=== PATIENT | female | born 1940 | race Caucasian/White ===

== ENCOUNTER 2016-12-13 13:01 | Emergency (ER) | payer BC ==
[2016-12-13] MEDS ORDERED: Labetalol IV* 5 MG/ML 20 ML VIAL IV PUSH ONE (13:38)
[2016-12-13 13:53] LABS: Hematocrit 44 % (35-47); Hemoglobin 15.6 g/dl (12.0-16.0); Mean Corpuscular HGB Conc 35 g/dl (31-36); Mean Corpuscular Hemoglobin 32 pg (27-31); Mean Corpuscular Volume 91 fL (80-97); Mean Platelet Volume 7 um3 (7.4-10.4); Red Blood Count 4.85 10^6/ul (4.0-5.4); Red Cell Distribution Width 13 % (10.5-15); White Blood Count 7.5 10^3/ul (3.5-10.8)
[2016-12-13 14:09] LABS: Albumin 4.6 g/dL (3.2-5.2); BUN/Creatinine Ratio 14.7 (8-20); Calcium 10.2 mg/dL (8.6-10.3); EGFR African American 107.6 (>60); EGFR Non-African American 83.7 (>60); Globulin 2.6 g/dL (2-4); HDL Cholesterol 91.6 mg/dL; Potassium 3.9 mmol/L (3.5-5.0); Total Bilirubin 0.7 mg/dL (0.2-1.0); Total Protein 7.2 g/dL (6.4-8.9); Troponin I 0.02 ng/mL (<0.04)
--- NOTE | 2016-12-13 14:22 | RAD ---
HISTORY: Hypertension, episode of aphasia COMPARISONS: None TECHNIQUE: Multiple contiguous axial CT scans were obtained of the head without intravenous contrast. FINDINGS: HEMORRHAGE/INFARCT: There is no hemorrhage or acute infarct. MASSES/SHIFT: There is no mass or shift. EXTRA-AXIAL SPACES: There are no extra-axial fluid collections. SULCI AND VENTRICLES: The sulci and ventricles are normal in size and position for the patient's stated age. CEREBRUM: There are no focal parenchymal abnormalities. BRAINSTEM: There are no focal parenchymal abnormalities. CEREBELLUM: There are no focal parenchymal abnormalities. VESSELS: The vessels are grossly normal. PARANASAL SINUSES: The paranasal sinuses are clear. ORBITS: The orbits are unremarkable. BONES AND SOFT TISSUE: No bone or soft tissue abnormalities are noted. OTHER: None IMPRESSION: NO ACUTE INTRACRANIAL PATHOLOGY.
--- NOTE | 2016-12-13 14:25 | RAD ---
Indication: Hypertension. 2 views of the chest including dual energy PA views demonstrate no mediastinal shift. Tortuous descending aorta is noted. Lungs are clear. IMPRESSION: No active cardiopulmonary disease is noted.
[2016-12-13] MEDS ORDERED: NS 0.9% 1000 ML* 1,000 ML IV ONE (14:41)
[2016-12-13 15:31] LABS: Urine Bilirubin Negative (Negative); Urine Glucose Negative (Negative); Urine Nitrite Negative (Negative)
[2016-12-13 16:59] VITALS: BP 139/51
--- NOTE | 2016-12-14 18:17 | ED ---
Lali Mckay Thomas, scribed for Sergio Byrne MD on 12/13/16 at 1359 . Neurological HPI - HPI Summary HPI Summary: The pt is a 76 y/o F referred from her PMD Dr. Obrien after she had a 2-minute episode of expressive aphasia three days ago that spontaneously resolved. She has a Hx of migraine headaches and she had a headache two days ago. She denies a BORJAS in the ED. Pt additionally c/o generalized malaise. Her blood pressure in the ED is 201/83. She does not have a Hx of HTN. Pt denies pain, slurred speech , weakness, blurred vision, and numbness. - History of Current Complaint Chief Complaint: EDGeneral Stated Complaint: HIGH BP/SENT BY DR JANG Time Seen by Provider: 12/13/16 13:28 Hx Obtained From: Patient Onset/Duration: Started days ago - 2-minute episode of expressive aphasia two days ago, Resolved Timing: Sudden Onset Current Severity: None Pain Intensity: 0 Pain Scale Used: 0-10 Numeric Aggravating: Nothing Alleviating: Nothing Associated Signs and Symptoms: Positive: Headache - Allergy/Home Medications Allergies/Adverse Reactions: Allergies Allergy/AdvReac Type Severity Reaction Status Date / Time Molds & Smuts Allergy Difficulty Verified 08/30/14 12:33 Breathing/Wheezing Perfume [Fragrance] Allergy BREATHING Verified 08/30/14 12:33 PMH/Surg Hx/FS Hx/Imm Hx Previously Healthy: No Endocrine/Hematology History: Reports: Hx Thyroid Disease - HYPOTHYROI Denies: Hx Diabetes Cardiovascular History: Denies: Hx Hypertension, Hx Pacemaker/ICD Respiratory History: Reports: Hx Asthma - RARELY USES VENTOLIN INHALER Denies: Hx Chronic Obstructive Pulmonary Disease (COPD) GI History: Reports: Hx Gastroesophageal Reflux Disease - ON MEDICATION FOR Denies: Hx Ulcer Musculoskeletal History: Reports: Hx Arthritis - RHEUMATOID, Hx Rheumatoid Arthritis Denies: Hx Osteoporosis Sensory History: Reports: Hx Cataracts - BILATERAL, Hx Contacts or Glasses - GLASSES Denies: Hx Hearing Aid Opthamlomology History: Reports: Hx Cataracts - BILATERAL, Hx Contacts or Glasses - GLASSES Neurological History: Reports: Other Neuro Impairments/Disorders - LUPUS Psychiatric History: Denies: Hx Panic Disorder - Cancer History Hx Chemotherapy: No Hx Radiation Therapy: No - Surgical History Surgery Procedure, Year, and Place: eye surgery - cataract surgery w/ lens implants; tonsils; 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 Hx Anesthesia Reactions: Yes - SENSITIVE TO SEDATION PER PATIENT Infectious Disease History: No Infectious Disease History: Denies: Hx Hepatitis, Hx Human Immunodeficiency Virus (HIV), History Other Infectious Disease, Traveled Outside the [place] in Last 30 Days - Family History Known Family History: Positive: Other - Negative for CVA - Social History Alcohol Use: Daily Alcohol Amount: 2 GLASSES OF WINE WITH DINNER Substance Use Type: Reports: None Hx Tobacco Use: Yes Smoking Status (MU): Former Smoker Type: Cigarettes Amount Used/How Often: 3/4 PPD X 25 YEARS Review of Systems Positive: Other - Generalized malaise Neurological: Other - Expresive aphasia (two days ago, none in ED); NEGATIVE: slurred speech, weakness, blurred vision, numbness Positive: Headache All Other Systems Reviewed And Are Negative: Yes Physical Exam - Summary Physical Exam Summary: VITAL SIGNS: Reviewed. GENERAL: Patient is a well-developed and nourished female who is lying comfortable in the stretcher. Patient is not in any acute respiratory distress. HEAD AND FACE: No signs of trauma. No ecchymosis, hematomas or skull depressions. No sinus tenderness. EYES: PERRLA, EOMI x 2, No injected conjunctiva, no nystagmus. No photophobia. EARS: Hearing grossly intact. Ear canals and tympanic membranes are within normal limits. MOUTH: Oropharynx within normal limits. NECK: Supple, trachea is midline, no adenopathy, no JVD, no carotid bruit, no c- spine tenderness, neck with full ROM. No meningeal signs, no Kernig's or brudzinskis signs. CHEST: Symmetric, no tenderness at palpation LUNGS: Clear to auscultation bilaterally. No wheezing or crackles. CVS: Regular rate and rhythm, S1 and S2 present, no murmurs or gallops appreciated. ABDOMEN: Soft, non-tender. No signs of distention. No rebound no guarding, and no masses palpated. Bowel sounds are normal. EXTREMITIES: FROM in all major joints, no edema, no cyanosis or clubbing. NEURO: Alert and oriented x 3. No acute neurological deficits. Speech is normal and follows commands. SKIN: Dry and warm GCS: 15 (unless he states otherwise) Triage Information Reviewed: Yes Vital Signs On Initial Exam: Initial Vitals Temp Pulse Resp BP Pulse Ox 98.7 F 72 16 218/95 98 12/13/16 13:11 12/13/16 13:11 12/13/16 13:11 12/13/16 13:11 12/13/16 13:11 Vital Signs Reviewed: Yes - Alfredo Coma Scale Coma Scale Total: 15 Diagnostics - Vital Signs Vital Signs Temp Pulse Resp BP Pulse Ox 12/13/16 13:30 82 11 201/83 98 12/13/16 13:26 83 16 99 12/13/16 13:25 211/75 12/13/16 13:11 98.7 F 72 16 218/95 98 - Laboratory Lab Results: Lab Results 12/13/16 12/13/16 12/13/16 Range/Units 13:45 13:45 13:45 WBC 7.5 (3.5-10.8) 10^3/ul RBC 4.85 (4.0-5.4) 10^6/ul Hgb 15.6 (12.0-16.0) g/dl Hct 44 (35-47) % MCV 91 (80-97) fL MCH 32 H (27-31) pg MCHC 35 (31-36) g/dl RDW 13 (10.5-15) % Plt Count 217 (150-450) 10^3/ul MPV 7 L (7.4-10.4) um3 Neut % (Auto) 67.7 (38-83) % Lymph % (Auto) 21.6 L (25-47) % Brantley % (Auto) 8.3 (1-9) % Eos % (Auto) 1.4 (0-6) % Baso % (Auto) 1.0 (0-2) % Absolute Neuts (auto) 5.1 (1.5-7.7) 10^3/ul Absolute Lymphs (auto) 1.6 (1.0-4.8) 10^3/ul Absolute Monos (auto) 0.6 (0-0.8) 10^3/ul Absolute Eos (auto) 0.1 (0-0.6) 10^3/ul Absolute Basos (auto) 0.1 (0-0.2) 10^3/ul Absolute Nucleated RBC 0.01 10^3/ul Nucleated RBC % 0.1 INR (Anticoag Therapy) 0.91 (0.89-1.11) Sodium 138 (133-145) mmol/L Potassium 3.9 (3.5-5.0) mmol/L Chloride 102 (101-111) mmol/L Carbon Dioxide 28 (22-32) mmol/L Anion Gap 8 (2-11) mmol/L BUN 10 (6-24) mg/dL Creatinine 0.68 (0.51-0.95) mg/dL Est GFR ( Amer) 107.6 (>60) Est GFR (Non-Af Amer) 83.7 (>60) BUN/Creatinine Ratio 14.7 (8-20) Glucose 97 (70-100) mg/dL Lactic Acid (0.5-2.0) mmol/L Calcium 10.2 (8.6-10.3) mg/dL Total Bilirubin 0.70 (0.2-1.0) mg/dL AST 26 (13-39) U/L ALT 15 (7-52) U/L Alkaline Phosphatase 60 (34-104) U/L Troponin I 0.02 (<0.04) ng/mL Total Protein 7.2 (6.4-8.9) g/dL Albumin 4.6 (3.2-5.2) g/dL Globulin 2.6 (2-4) g/dL Albumin/Globulin Ratio 1.8 (1-3) Triglycerides 76 mg/dL Cholesterol 271 mg/dL LDL Cholesterol 164 mg/dL HDL Cholesterol 91.6 mg/dL Urine Color Urine Appearance Urine pH (5-9) Ur Specific [place] (1.010-1.030) Urine Protein (Negative) Urine Ketones (Negative) Urine Blood (Negative) Urine Nitrate (Negative) Urine Bilirubin (Negative) Urine Urobilinogen (Negative) Ur Leukocyte Esterase (Negative) Urine Glucose (Negative) 12/13/16 12/13/16 Range/Units 13:45 15:17 WBC (3.5-10.8) 10^3/ul RBC (4.0-5.4) 10^6/ul Hgb (12.0-16.0) g/dl Hct (35-47) % MCV (80-97) fL MCH (27-31) pg MCHC (31-36) g/dl RDW (10.5-15) % Plt Count (150-450) 10^3/ul MPV (7.4-10.4) um3 Neut % (Auto) (38-83) % Lymph % (Auto) (25-47) % Brantley % (Auto) (1-9) % Eos % (Auto) (0-6) % Baso % (Auto) (0-2) % Absolute Neuts (auto) (1.5-7.7) 10^3/ul Absolute Lymphs (auto) (1.0-4.8) 10^3/ul Absolute Monos (auto) (0-0.8) 10^3/ul Absolute Eos (auto) (0-0.6) 10^3/ul Absolute Basos (auto) (0-0.2) 10^3/ul Absolute Nucleated RBC 10^3/ul Nucleated RBC % INR (Anticoag Therapy) (0.89-1.11) Sodium (133-145) mmol/L Potassium (3.5-5.0) mmol/L Chloride (101-111) mmol/L Carbon Dioxide (22-32) mmol/L Anion Gap (2-11) mmol/L BUN (6-24) mg/dL Creatinine (0.51-0.95) mg/dL Est GFR ( Amer) (>60) Est GFR (Non-Af Amer) (>60) BUN/Creatinine Ratio (8-20) Glucose (70-100) mg/dL Lactic Acid 0.8 (0.5-2.0) mmol/L Calcium (8.6-10.3) mg/dL Total Bilirubin (0.2-1.0) mg/dL AST (13-39) U/L ALT (7-52) U/L Alkaline Phosphatase (34-104) U/L Troponin I (<0.04) ng/mL Total Protein (6.4-8.9) g/dL Albumin (3.2-5.2) g/dL Globulin (2-4) g/dL Albumin/Globulin Ratio (1-3) Triglycerides mg/dL Cholesterol mg/dL LDL Cholesterol mg/dL HDL Cholesterol mg/dL Urine Color Yellow Urine Appearance Clear Urine pH 7.0 (5-9) Ur Specific [place] 1.005 L (1.010-1.030) Urine Protein Negative (Negative) Urine Ketones Negative (Negative) Urine Blood Negative (Negative) Urine Nitrate Negative (Negative) Urine Bilirubin Negative (Negative) Urine Urobilinogen Negative (Negative) Ur Leukocyte Esterase Negative (Negative) Urine Glucose Negative (Negative) Result Diagrams: 12/13/16 13:45 12/13/16 13:45 Lab Statement: Any lab studies that have been ordered have been reviewed, and results considered in the medical decision making process. - Radiology CXR Xray Interpretation: No Acute Changes - No active cardiopulmonary disease is noted. ED Physician has reviewed this report and agrees. Radiology Interpretation Completed By: Radiologist - CT CT Brain CT Interpretation: No Acute Changes - No acute intracranial pathology. ED Physician has reviewed this report and agrees. CT Interpretation Completed By: Radiologist - EKG 14:59 Cardiac Rate: Bradycardia - 59 BPM EKG Rhythm: Sinus Bradycardia EKG Interpretation: No ST elevations. Course/Dx - Course Assessment/Plan: The pt is a 76 y/o F referred from her PMD Dr. Obrien after she had a 2-minute episode of expressive aphasia three days ago that spontaneously resolved. She has a Hx of migraine headaches and she had a headache two days ago. She denies a BORJAS in the ED. Pt additionally c/o generalized malaise. Her blood pressure in the ED is 201/83. She does not have a Hx of HTN. Pt denies pain, slurred speech, weakness, blurred vision, and numbness. Test results are without significant abnormalities. UA is negative for UTI. Head CT is negative for any acute intracranial pathology. In the ED course, the patient was given Labetalol for high blood pressure, and her blood pressure decreased to 139/51. At this point, I discussed the case with Dr. Jang, the patients primary care provider, and she agrees with giving the patient Lisinopril. She will follow up on Friday with the patient. Final impression: hypertensive urgency. - Differential Dx Differential Diagnoses Neuro: Positive: Cerebrovascular Accident, Headache, Hypertension, Transient Ischemic Attack - Diagnoses Provider Diagnoses: Uncontrolled hypertension Discharge - Discharge Plan Condition: Stable Disposition: HOME Prescriptions: Lisinopril TAB* [Prinivil TAB 5 MG*] 5 mg PO DAILY #15 tab Patient Education Materials: Hypertension (ED) Referrals: Leola Jang MD [Primary Care Provider] - 3 Days Additional Instructions: Follow up with your primary care provider in 3 days. Return to the emergency department for any new or worsening symptoms. The documentation as recorded by the Lali hi Thomas accurately reflects the service I personally performed and the decisions made by , Sergio Byrne MD.
== END 2016-12-13 16:58 | disposition home or self-care (01) ==
LOC: ED 13:01
DX: I10 Essential (primary) hypertension (principal); E03.9 Hypothyroidism, unspecified; Z87.891 Personal history of nicotine dependence
CPT/HCPCS: 36415; 70450; 71020; 80053; 80061; 81003; 83605; 84484; 85025; 85610; 93005; 99284

== ENCOUNTER 2017-11-02 07:45 | Emergency (ER) | payer BC ==
--- OUTSIDE RECORDS SUMMARY | 2017-11-02 07:55 | XMS REPORT | Continuity of Care Document ---
:1940 Author Organization [facility] Address [address], [place] [id number] Phone Care Team Providers Name Role Phone Collins Worley MD Unavailable Unavailable Allergies, Adverse Reactions, Alerts Substance Reaction Status lisinopril cough Active AMLODIPINE BESYLATE Active Medications Medication Instructions Dosage Effective Dates Status Comments (start - stop) prednisone 2.5 mg take 1 tablet by - Active tablet oral route 1-2 times as needed Imuran 50 mg tablet take 0.5 tablet by 25 MG - Active oral route every day gabapentin 100 mg TAKE 1 - 2 CAPSULE 100 MG - Active capsule BY ORAL ROUTE EVERY BEDTIME folic acid 1 mg TAKE 2 TABLETS - Active tablet DAILY Aspir-81 81 mg take 1 tablet by 81 MG - Active tablet,delayed oral route every release day Tylenol 325 mg take 1 tab prn - Active tablet Rituxan 10 mg/mL infuse 1000 mg day - Active concentrate,intraven one and day 15 then ous every 6 months lisinopril 2.5 mg take 1 tablet by 2.5 MG - Active tablet oral route every day lansoprazole 15 mg take 1 capsule by 15 MG - Active capsule,delayed oral route every release day before a meal METOPROLOL SUCCINATE take 1 tablet by Not Available - Active (unknown strength) oral route every day 12.5mg multivitamin tablet take 1 tablet by - Active oral route every day with food Systane Gel 0.4 - Active %-0.3 % Eye Gel Drops Restasis 0.05 % Eye instill 1 drop by 1.00 drop - Active Dropperette ophthalmic route every 12 hours into affected eye(s) levothyroxine 50 mcg 1 po qd - Active Cap Fish Oil 1,000 mg 1 po BID - Active (120 mg-180 mg) Cap Calcium 600 + D(3) 2 po qd - Active 600 mg-200 unit Cap Problems Condition Effective Dates Clinical Status Comments (start - stop) Rheu arthritis w rheu factor mult site w/o org/sys involv Other intermediate school teacher (current) drug therapy Sicca syndrome, unspecified GERD with esophagitis 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 Other intermediate school teacher (current) drug therapy Hypertension 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 Other detention (current) drug therapy Sicca syndrome, unspecified Age-related osteoporosis without current pathological fracture Other intervertebral disc degeneration, lumbar region Trigger finger, left ring finger 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 Sicca syndrome, unspecified Other intervertebral disc degeneration, lumbar region Hypertension Age-related osteoporosis without current pathological fracture Other intermediate school teacher (current) drug therapy 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 Age-related osteoporosis without current pathological fracture Sicca syndrome, unspecified Other intermediate school teacher (current) drug therapy Hypertension TIA 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 Age-related osteoporosis without current pathological fracture Other intervertebral disc degeneration, lumbar region Other intermediate school teacher (current) drug therapy 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 Sicca syndrome, unspecified Other intervertebral disc degeneration, lumbar region Age-related osteoporosis without current pathological fracture Other intermediate school teacher (current) drug therapy Other detention (current) drug therapy 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 Age-related osteoporosis without current pathological fracture Sicca syndrome, unspecified Other intervertebral disc degeneration, 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 Sicca syndrome, unspecified 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 Sicca syndrome, unspecified Age-related osteoporosis without current pathological fracture Other intervertebral disc degeneration, lumbar region Age-related osteoporosis without current pathological fracture Other intervertebral disc degeneration, lumbar region Other detention (current) drug therapy 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 Rheumatoid arthritis Sicca syndrome, unspecified 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 Other detention (current) drug therapy Other intervertebral disc degeneration, lumbar region Sicca syndrome, unspecified 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 Sicca syndrome, unspecified Other intermediate school teacher (current) drug therapy Other intervertebral disc degeneration, 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 Sicca syndrome, unspecified Other detention (current) drug therapy Age-related osteoporosis without current pathological fracture Age-related osteoporosis without current pathological fracture 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 Other detention (current) drug therapy Age-related osteoporosis without current pathological fracture 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 Other detention (current) drug therapy Rheumatoid arthritis Other detention (current) drug therapy 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 The mapped diagnosis code was Degeneration of intervertebral disc, site unspecif, 722.6, added by Berlin PANDEY, with responsible provider Berlin Phillips PA-C. Onset date 03/01/2013; last addressed on 02/11/2014. Sjgren's syndrome - Active Mapped from [facility] Chronic Conditions table on 04/26/2014 by the ICD9 to SNOMED Bulk Mapping Utility. The mapped diagnosis code was Sicca syndrome, 710.2, added by Nidhi Flores MD, with responsible provider Nidhi Flores MD. Onset date 09/04/2011; last addressed on 02/11/2014. Rheumatoid arthritis - Active Mapped from [facility] Chronic Conditions table on 04/26/2014 by the ICD9 to SNOMED Bulk Mapping Utility. The mapped diagnosis code was Rheumatoid Arthritis, 714.0, added by Nidhi Flores MD, with responsible provider Nidhi Flores MD. Onset date 09/04/2011; last addressed on 02/11/2014. Rheumatoid factor - Active positive Hypertensive disorder Active Procedures Procedure Date No information Results Test Name Date and Time Measure Units Reference Range Abnormal Flag Status Comments No information Advance Directives Directive Yes / No Effective Date File Name No information Encounters Encounter Practice Location Reason(s) Diagnoses Date Provider Providers Description For Visit Copied on Encounter Arthritis Arthritis Brunilda CASE [facility] Patrick. Evelio Fraser 8 5794 PLLC, 5794 PLLC [facility], [place], [id number], [id number], [place]. [place] tel:+ tel:[phone] Arthritis Arthritis Rheu arthritis Brunilda CASE Specialist: [facility] Patrick. Chava [facility] w/o 8 [address] [facility], 5794 PLLC org/reina Walton MD, [address] [facility], [facility], detention [place], [address], [place], (current) drug [place], [place], [place], [place], therapySicca [id number], [address]. [id number], syndrome, [place]. tel:[phone] [place] unspecifiedGER tel:[phone] tel:[phone] D with [phone] esophagitis Arthritis Arthritis [facility] PA-C [facility] 8 Jimmie. PLLC, 5794 PLLC [address] [facility], [place], [place], [id number], [id number], [place]. tel:[phone] tel:[phone] Arthritis Arthritis RA w/ Brunilda CASE [facility] Health rheumatoid 9 Collins. [facility] factor of 8 5794 PLLC, 5794 PLLC multiple sites [facility] w/o organ [place], [place], involvement [place], [place], [place], [id number], [id number], [place]. [place] tel: tel:[phone] Arthritis Arthritis RA w/ Ramesh CASE [facility] Health rheumatoid - Lizbeth. 5794 Associates Associates factor of 8 [facility], 5794 PLLC multiple sites [facility] w/o organ [place], [place], involvement [place], [place], [id number], [place], [place]. [id number], tel:[phone] tel:[phone] Arthritis Arthritis RA w [place] Referring Health Health rheumatoid CHALO Waters. Provider: [facility] factor of 8 5794 Leola PLLC, 5794 PLLC multiple sites [facility], [facility] w/o organ [place] [place], involvementOth [place], Najma [place], er intermediate school teacher [place], [facility], (current) drug [id number], [address], [id number], therapyHyperte [place]. [place], [place], nsion tel: [phone]. tel: [phone] tel:[phone] Arthritis Arthritis RA w/ [place] Specialist: Health Health rheumatoid CHALO Waters. Chava Fraser Associates factor of 8 [address] [facility], 5794 PLLC multiple sites Isabelle CASE, [address] [facility] w/o organ [place], Triphammer [place], involvementOth [place], [address], [place], er intermediate school teacher [place], [place], [place], (current) drug [id number], [address]. [id number], therapySicca [place]. tel:+[phone] [place] syndrome, tel:[phone] tel:[phone] unspecifiedAge [id number] -related osteoporosis without current pathological fractureOther intervertebral disc degeneration, lumbar regionTrigger finger, left ring finger Arthritis Arthritis RA w/ Mar- Brunilda CASE [facility] rheumatoid 3 Collins. [facility] factor of 8 5794 PLLC, 5794 PLLC multiple sites [facility] w/o organ [place], [place], involvement [place], [place], [place], [id number], [id number], [place]. [place] tel:+4 tel:[phone] Arthritis Arthritis RA w/ Mar-0 Dav CASE [facility] rheumatoid Andry. [facility] factor of 8 5794 PLLC, 5794 PLLC multiple sites [facility] w/o organ [place], [place], involvement [place], [place], [place], [id number], [id number], [place]. [place] tel:+ tel:[phone] Arthritis Arthritis RA w/ [place] Specialist: [facility] rheumatoid 0 CHALO Fraser [facility] factor of 8 5794 [facility], 5794 PLLC multiple sites [facility], [address] [facility] w/o organ [place], Triphammer [place], involvementSic [place], [address], [place], [place], [place], [place], [place], unspecifiedOth [id number], [address]. [id number], er [place]. tel:[phone] [place] intervertebral tel: [phone] tel:+[phone] disc [phone] degeneration, lumbar regionHyperten sionAge-relate d osteoporosis without current pathological fracture Arthritis Arthritis Other long [facility] term (current) MD Terrell. [facility] drug therapy 7 5794 PLLC, [facility] [facility], [place], [place], [place], [place], [id number], [id number], [place]. [place] tel:[phone] tel:[phone] Arthritis Arthritis [facility] MD Terrell. [facility] 7 5794 PLLC, 5794 PLLC [facility] [place], [place], [place], [place], [place], [id number], [id number], [place]. [place] tel: tel:+ [phone] Arthritis Arthritis RA w [facility] Specialist: [facility] rheumatoid 7 MD Linda. Larsen [facility] factor of 7 5794 [facility], 5794 PLLC multiple sites Isabelle CASE, [address] [facility] w/o organ [place], [facility] [place], involvementAge [place], [address], [place], -related [place], [place], [place], osteoporosis [id number], [address]. [id number], without [place]. tel:+[phone] [place] current tel:[phone] tel:+[phone] pathological [phone] fractureSicca syndrome, unspecifiedOth er detention (current) drug therapyHyperte nsionTIA Arthritis Arthritis RA w [facility] rheumatoid 8 MD Terrell. [facility] factor of 7 5794 PLLC, 5794 PLLC multiple sites [facility] w/o organ [place], [place], involvement [place], [place], [place], [id number], [id number], [place]. [place] tel: tel: [phone] Arthritis Arthritis RA Alan Specialist: [facility] rheumatoid CHALO Fraser Associates factor of 7 5794 [facility], 5794 PLLC multiple sites Isabelle CASE, [address] [facility] w/o organ [place], [facility], involvementAge [place], [address], [place], -related [place], [place], [place], osteoporosis [id number], [address]. [id number], without [place]. tel:[phone] [place] current tel:[phone] tel:[phone] pathological [phone] 088647 fractureOther intervertebral disc degeneration, lumbar regionOther intermediate school teacher (current) drug therapy Arthritis Arthritis RA w/ [facility] rheumatoid MD Terrell. [facility] factor of 7 5794 PLLC, 5794 PLLC multiple sites [facility] w/o organ [place], [place], involvement [place], [place], [place], [id number], [id number], [place]. [place] tel:[phone] tel:[phone] Arthritis Arthritis RA w/ [facility] rheumatoid CHALO Waters. [facility] factor of 7 5794 PLLC, 5794 PLLC multiple sites [facility] w/o organ [place], [place], involvementSic [place], [place], [place], [place], unspecifiedOth [id number], [id number], er [place]. [place] intervertebral tel:[phone] tel:[phone] disc [phone] degeneration, lumbar regionAge-rela jennifer osteoporosis without current pathological fractureOther detention (current) drug therapy Arthritis Arthritis Other long [facility] term (current) MD Terrell. [facility] drug therapy 7 5794 PLLC, 5794 PLLC [facility], [place], [place], [place], [place], [id number], [id number], [place]. [place] tel:[phone] tel:[phone] Arthritis Arthritis RA w/ [facility] rheumatoid MD Terrell. [facility] factor of 7 5794 PLLC, 5794 PLLC multiple sites [facility] w/o organ [place], [place], involvementAge [place], [place], [place], osteoporosis [id number], [id number], without [place]. [place] current tel:[phone] tel:[phone] pathological [phone] fractureSicca syndrome, unspecifiedOth er intervertebral disc degeneration, lumbar region Arthritis Arthritis RA w/ 0 [facility] rheumatoid CHALO Waters. [facility] factor of 7 5794 PLLC, 5794 PLLC multiple sites [facility] w/o organ [place], [place], involvementSic [place], [place], [place], [place], unspecified [id number], [id number], [place]. [place] tel: tel:+ [phone] Arthritis Arthritis RA w/ [facility] rheumatoid 1-201 MD Terrell. [facility] factor of 7 5794 PLLC, 5794 PLLC multiple sites [facility] w/o organ [place], [place], involvement [place], [place], [place], [id number], [id number], [place]. [place] tel: tel:+ [phone] Arthritis Arthritis RA w/ [facility] rheumatoid 5- MD Terrell. [facility] factor of 7 5794 PLLC, 5794 PLLC multiple sites [facility] w/o organ [place], [place], involvementSic [place], [place], [place], [place], unspecifiedAge [id number], [id number], -related [place]. [place] osteoporosis tel:+ tel:+ without [phone] current pathological fractureOther intervertebral disc degeneration, lumbar region Arthritis Arthritis Age-related [facility] osteoporosis 4-201 MD Terrell. [facility] without 6 5794 PLLC, 5794 PLLC current [facility] pathological [place], [place], fractureOther [place], [place], intervertebral [place], disc [id number], [id number], degeneration, [place]. [place] lumbar tel:+ tel:+ regionOther [phone] detention (current) drug therapy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Rhe umatoid arthritisSicca syndrome, unspecified [facility] 3-201 PA-C [facility] factor of 6 Jimmie. PLLC, 5794 PLLC multiple sites 5794 [facility] w/o organ [facility] [place], involvementOth [place], [place], er detention [place], (current) drug [place], [id number], therapyOther [id number], [place] intervertebral [place]. tel:+ disc tel: [phone] degeneration, 612384 lumbar regionSicca syndrome, unspecified Arthritis Arthritis RA w/ [facility] rheumatoid MD Terrell. [facility] factor of 6 5794 PLLC, 5794 PLLC multiple sites [facility] w/o organ [place], [place], involvementSic [place], [place], [place], [place], unspecifiedOth [id number], [id number], er intermediate school teacher [place]. [place] (current) drug tel:+ tel:+[phone] therapyOther [phone] intervertebral disc degeneration, lumbar region Arthritis Arthritis RA w/ Brunilda [facility] rheumatoid Collins. [facility] factor of 6 5794 PLLC, 5794 PLLC multiple sites [facility] w/o organ [place], [place], involvement [place], [place], [place], [id number], [id number], [place]. [place] tel: tel: [phone] Arthritis Arthritis RA w/ [facility] rheumatoid CHALO Waters. [facility] factor of 6 5794 PLLC, 5794 PLLC multiple sites [facility] w/o organ [place], [place], involvementSic [place], [place], [place], [place], unspecifiedOth [id number], [id number], er intermediate school teacher [place]. [place] (current) drug tel:+ tel:+ therapyAge-rel [phone] ated osteoporosis without current pathological fracture Arthritis Arthritis Age-related [facility] osteoporosis MD Terrell. [facility] without 6 5794 PLLC, 5794 PLLC current [facility] pathological [place], [place], fracture [place], [place], [place], [id number], [id number], [place]. [place] tel: tel: [phone] Arthritis Arthritis RA w/ [facility] rheumatoid CHALO Waters. [facility] factor of 6 5794 PLLC, 5794 PLLC multiple sites [facility] w/o organ [place], [place], involvementOth [place], [place], [place], (current) drug [id number], [id number], therapyAge-rel [place]. [place] ated tel:+315 tel:+[phone] osteoporosis [phone] without current pathological fracture Arthritis Arthritis RA w/ [facility] rheumatoid CHALO Waters. [facility] factor of 6 5794 PLLC, 5794 PLLC multiple sites [facility] w/o organ [place], [place], involvementOth [place], [place], er intermediate school teacher [place], (current) drug [id number], [id number], therapy [place]. [place] tel:+ tel:[phone] Arthritis Arthritis Rheumatoid [facility] arthritisOther MD Terrell. [facility] intermediate school teacher 6 5794 PLLC, 5794 PLLC (current) drug [facility] therapy [place], [place], [place], [place], [place], [id number], [id number], [place]. [place] tel:+ tel:[phone] Arthritis Arthritis RA w/ [facility] rheumatoid CHALO Waters. [facility] factor of 6 5794 PLLC, 5794 PLLC multiple sites [facility] w/o organ [place], [place], involvementOth [place], [place], er intermediate school teacher [place], (current) drug [id number], [id number], therapy [place]. [place] tel:+[phone] tel:[phone] Arthritis Arthritis RA w/ [facility] rheumatoid CHALO Waters. [facility] factor of 5 5794 PLLC, 5794 PLLC multiple sites [facility] w/o organ [place], [place], involvementSic [place], [place], [place], [place], [place], unspecifiedAge [id number], [id number], -related [place]. [place] osteoporosis tel:+[phone] tel:+[phone] without [phone] current pathological fractureOther intermediate school teacher (current) drug therapy Arthritis Arthritis Jul-3 Anshu [facility] 0-201 Dodji. 310 [facility] [address] Lopez PLLC, [address], [facility], [place], [place], [place], [id number], [place], [place]. [id number], tel:+[phone] [place] [phone] tel:[phone] Arthritis Arthritis [facility] 7- MD Terrell. [facility] 4 5794 PLLC, 5794 PLLC [facility], [place], [place], [place], [place], [id number], [id number], [place]. [place] tel:+[phone] tel:[phone] Arthritis Arthritis [facility] 3 CHALO Waters. [facility] 4 5794 PLLC, 5794 PLLC [facility], [place], [place], [place], [place], [id number], [id number], [place]. [place] tel:+ tel:+ [phone] Arthritis Arthritis [facility] 4- MD Terrell. [facility] 3 5794 PLLC, 5794 PLLC [facility], [place], [place], [place], [place], [id number], [id number], [place]. [place] tel:+4 tel:[phone] Arthritis Arthritis [facility] 2- CHALO Slade. [facility] 3 5794 PLLC, 5794 PLLC [facility], [place], [place], [place], [place], [id number], [id number], [place]. [place] tel:+[phone] tel:[phone] Arthritis Arthritis [facility] 7- CHALO Waters. Provider: [facility] 2 [address] Jolly PLLC, 5794 PLLC [facility], [address] [place], [facility], [place], [place], [place], [address]. [place], [id number], tel:[phone], [place]. [address]Agggl [place] tel:+[phone] [facility] tel:[phone] Provider: [id number] Sergio Vaughn, [address] [place] [address], [place], [address]. tel:[phone] Arthritis Arthritis Nov-0 [facility] 1 PA-C Provider: Associates Evelio 1 Jimmie. Sergio PLLC, 5794 PLLC [address] [place], [facility] [address] [place], [place], [facility], [place], [place] [address], [place], [place], [place], [place], [id number], [id number], [address]. [place]. tel:+[phone] tel:+3154 tel:[phone] Arthritis Arthritis May-2 [facility] 2- MD Terrell. Provider: [facility] 1 [address] [facility], 5794 PLLC [facility], [address] [place], [place], [facility], [place], [place] [address], [place], [id number], [place], [place], [id number], [place]. [address]. [place] tel:+[phone] tel:+6021 tel:[phone] Family History Family Member Diagnosis Age At Onset Child Father Immunizations Vaccine Date Status Comments Influenza, injectable, administered Source: Other Provider quadrivalent, split virus, 18 years or older Afluria Quad [id number] Influenza, injectable, administered Source: Other Provider trivalent, split virus, 4 years and older, Fluvirin [id number] Influenza, split virus, administered Source: Other Provider injectable, 3 years and older Fluvirin [id number] Flu (split) (3 yrs or older) administered Source: New Immunization Record Allergic to Zoster administered Source: New Immunization Record Influenza virus vaccine, administered Source: Other Provider Injection pneumo (2 yrs or older) administered Source: New Immunization Record (PPV23) Payers Payer name Insurance type Covered constitution party ID Authorization(s) [employer] No Referral Required [id number] Social History Type Description Quantity Date Captured Comments Alcohol Use Details Unknown Caffeine Use Details Unknown Tobacco Use Status Unknown Smoking Status Unknown Sex Female Vital Signs Date / Height Weight BMI Pulse Blood Temperature Respiratory Body Head BMI Pulse Inhaled Time: Rate Pressure Rate Surface Circumference percentile Ox Ox Area No information Chief Complaint And Reason For Visit No information Reason For Referral Reason For Referral No information Plan Of Treatment Date Type Action Status Goal Visual Field Exam. Due on due Goal Visual Field Exam. Due on due Goal Visual Field Exam. Due on due Goal Visual Field Exam. Due on due Goal Visual Field Exam. Due on due Goal Visual Field Exam. Due on due Goal Visual Field Exam. Due on due Goal Visual Field Exam. Due on due Goal Visual Field Exam. Due on due Goal Visual Field Exam. Due on due Goal Visual Field Exam. Due on due Goal Visual Field Exam. Due on due Goal Visual Field Exam. Due on due Goal Visual Field Exam. Due on due Goal Visual Field Exam. Due on due Goal Visual Field Exam. Due on due Goal Visual Field Exam. Due on due Goal Visual Field Exam. Due on due Goal Visual Field Exam. Due on due Goal Visual Field Exam. Due on due Goal Visual Field Exam. Due on due Goal Visual Field Exam. Due on due Goal Visual Field Exam. Due on due Goal Visual Field Exam. Due on due Goal Visual Field Exam. Due on due Goal Visual Field Exam. Due on due Goal Visual Field Exam. Due on due Goal Visual Field Exam. Due on due Goal Visual Field Exam. Due on due Goal Visual Field Exam. Due on due Goal Visual Field Exam. Due on due Referral Referred To: ordered Aly Rodriguez [address] [place], [place], [id number] Ordered: Referrals: Allopathic & Osteopathic Physicians : Internal Medicine : Gastroenterology. Aly Rodriguez Referral Ordered: ordered *DXA BONE DENSITY, AXIAL Appointment Molly Hernandez BOOKED Appointment Molly Hernandez BOOKED Appointment Molly Hernandez BOOKED History Of Present Illness Encounter Date Complaint History Of Present Illness No information Functional Status Date Functional Assessment No information Medications Administered Medication Instructions Dosage Effective Dates (start - stop) Status Comments No information Instructions Date Instruction Additional Information Risks/benefits of medications reviewed Labs ordered to check disease activity. Labs ordered to check blood counts, liver and kidney functions to monitor safety of medication. Discussed / Reviewed Labs Patient plan printed and given along with recommendations call if symptoms worsen add 2.5mg prednisone 0-2 times daily if needed Post injection care reviewed, instructions given Reviewed importance of compliance/adherence to medications prescribed Avoid live vaccines Risks/benefits of medications reviewed Discussed importance of holding DMARDs/ biologics if patient develops an infection and to notify the treating physician Diet: Instructed on appropriate calcium and vitamin D intake. Stretching Labs ordered to check disease activity. Labs ordered to check blood counts, liver and kidney functions to monitor safety of medication. Discussed / Reviewed Labs Patient plan printed and given along with recommendations call if symptoms worsen maintain adequate water intake every day Risks/benefits of medications reviewed Conservative medical care measures discussed. Moderate activities regarding symptomatic joints. Labs ordered to check disease activity. Labs ordered to check blood counts, liver and kidney functions to monitor safety of medication. Discussed / Reviewed Labs hold medication and call if any side effect develops continue same medication plan call if symptoms worsen Discussed importance of holding DMARDs/ biologics if patient develops an infection and to notify the treating physician Discussed importance of holding DMARDs/ biologics if patient develops an infection and to notify the treating physician Discussed importance of holding DMARDs/ biologics if patient develops an infection and to notify the treating physician
--- OUTSIDE RECORDS SUMMARY | 2017-11-02 07:55 | XMS REPORT | Continuity of Care Document ---
:1940 Author Organization [facility] Address [address] [place], [place] [id number] Phone Care Team Providers Name Role Phone Collins Worley MD Unavailable Unavailable Allergies, Adverse Reactions, Alerts Substance Reaction Status lisinopril cough Active AMLODIPINE BESYLATE Active Medications Medication Instructions Dosage Effective Status Comments Dates (start - stop) prednisone 2.5 mg take [...] mg/mL infuse 1000 mg day - Active concentrate,intrave one and day 15 nous then every 6 months lisinopril 2.5 mg take 1 tablet by 2.5 MG - Active tablet oral route every day lansoprazole 15 mg take 1 capsule by 15 MG - Active capsule,delayed oral route every release day before a meal METOPROLOL take 1 tablet by Not Available - Active SUCCINATE (unknown oral route every strength) day 12.5mg multivitamin tablet take 1 tablet by - Active oral route every day with food Systane Gel 0.4 - Active %-0.3 % Eye Gel Drops Restasis 0.05 % Eye instill 1 drop by 1.00 drop - Active Dropperette ophthalmic route every 12 hours into affected eye(s) levothyroxine 50 1 po qd - Active mcg Cap Fish Oil 1,000 mg 1 po BID - Active (120 mg-180 mg) Cap Calcium 600 + D(3) 2 po qd - Active 600 mg-200 unit Cap prednisone 2.5 mg take 1 tablet by - No Longer tablet oral route 1-2 Active times as needed prednisone 2.5 mg take 1 tablet by - No Longer tablet oral route 1-2 Active times as needed Imuran 50 mg tablet take 0.5 tablet by 25 MG - No Longer oral route every Active day lisinopril 5 mg take 1 tablet by 5 MG - No Longer tablet oral route every Active day Problems Condition Effective Dates Clinical Status Comments (start - stop) Rheu arthritis w rheu factor mult site w/o org/sys involv Other chcf (current) drug therapy Sicca syndrome, unspecified GERD with esophagitis 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 Other local intermodal truck driver (current) drug therapy Hypertension 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 Other ch[facility] (current) drug therapy Sicca syndrome, unspecified Age-related [...] Age-related osteoporosis without current pathological fracture Other chcf (current) drug therapy 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 Age-related osteoporosis without current pathological fracture Sicca syndrome, unspecified Other chcf (current) drug therapy Hypertension TIA 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 Age-related osteoporosis without current pathological fracture Other intervertebral disc degeneration, lumbar region Other chcf (current) drug therapy 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 Sicca syndrome, unspecified Other intervertebral disc degeneration, lumbar region Age-related osteoporosis without current pathological fracture Other chcf (current) drug therapy Other local intermodal truck driver (current) drug therapy RA w/ rheumatoid factor [...] Other intervertebral disc degeneration, lumbar region Other local intermodal truck driver (current) drug therapy 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 Rheumatoid arthritis Sicca syndrome, unspecified 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 Other local intermodal truck driver (current) drug therapy Other intervertebral disc degeneration, lumbar region Sicca syndrome, unspecified 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 Sicca syndrome, unspecified Other local intermodal truck driver (current) drug therapy Other intervertebral disc degeneration, 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 Sicca syndrome, unspecified Other chcf (current) drug therapy Age-related osteoporosis without current pathological fracture Age-related osteoporosis without current pathological fracture 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 Other chcf (current) drug therapy Age-related osteoporosis without current pathological fracture 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 Other local intermodal truck driver (current) drug therapy Rheumatoid arthritis Other chcf (current) drug therapy 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 The mapped diagnosis code was Degeneration of intervertebral disc, site unspecif, 722.6, added by Berlin PANDEY, with responsible provider Berlin Phillips PA-C. Onset date 03/01/2013; last addressed on 02/11/2014. Sjgren's syndrome - Active Mapped from [facility] Chronic Conditions table on 04/26/2014 by the ICD9 to SNOMED Bulk Mapping Utility. The mapped diagnosis code was Sicca syndrome, 710.2, added by Nidhi Flores MD, with responsible provider Nidhi Flores MD. Onset date 09/04/2011; last addressed on 02/11/2014. Rheumatoid arthritis - Active Mapped from [facility] Chronic Conditions table on 04/26/2014 by the ICD9 to SNOMED Bulk Mapping Utility. The mapped diagnosis code was Rheumatoid Arthritis, 714.0, added by Nidhi Flores MD, with responsible provider Nidhi Flores MD. Onset date 09/04/2011; last addressed on 02/11/2014. Rheumatoid factor - Active positive Hypertensive disorder Active Procedures Procedure Date ROUTINE VENIPUNCTURE COMPLETE CBC W/AUTO DIFF WBC RBC SED RATE, AUTOMATED C-REACTIVE PROTEIN ASSAY OF CREATININE TRANSFERASE (AST) (SGOT) OFFICE/OUTPATIENT VISIT, EST Results Test Name Date and Time Measure Units Reference Range Abnormal Flag Status Comments Panel Description: CBC Final WBC 10:50:00 8.4 10 3.7-10.1 Final RBC 10:50:00 4.50 10 3.50-5.50 Final HGB 10:50:00 13.6 g/dL 12.0-16.0 Final HCT 10:50:00 41.6 % 36.0-48.0 Final MCV 10:50:00 92.3 fL 80.0-100.0 Final MCH 10:50:00 30.1 pg 26.0-34.0 Final MCHC 10:50:00 32.6 g/dL 31.0-37.0 Final RDW 10:50:00 11.8 % 10.0-15.0 Final PLATELETS 10:50:00 214 10 150-500 Final MPV 10:50:00 6.6 fL 6.0-10.0 Final EMMA# 10:50:00 5.94 10 2.10-8.00 Final LYM# 10:50:00 1.38 10 1.00-5.00 Final MONO# 10:50:00 0.91 10 0.10-1.00 Final EOS# 10:50:00 0.1 10 0.0-0.5 Final BASO# 10:50:00 0.1 10 0.0-0.2 Final EMMA% 10:50:00 70.6 % 50.0-80.0 Final LYM% 10:50:00 16.4 % 25.0-50.0 L Final MONO% 10:50:00 10.8 % 2.0-10.0 H Final EOS% 10:50:00 1.5 % 0.0-5.0 Final BASO% 10:50:00 0.7 % 0.0-4.0 Final Panel Description: ESR Final ESR 10:50:00 5 mm/Hr 0-20 Final Panel Description: AST Final AST 10:50:00 26 U/L 15-37 Final Panel Description: CREATININE Final CREATININE 10:50:00 0.7 mg/dL 0.6-1.2 Final eGFR 10:50:00 80.7 mL/min/1.73m Final Panel Description: CRP Final CRP 10:50:00 <0.2 mg/dL 0.2-1.0 L Final Advance Directives Directive Yes / No Effective Date File Name No information Encounters Encounter Practice Location Reason(s) Diagnoses Date Provider Providers Description For Visit Copied on Encounter OFFICE/OUTPA Arthritis Arthritis Rheumatoid Rheu Brunilda CASE Specialist: WILI WADE, [facility] arthritis arthritis w Patrick. [facility] (chief rheu factor 8 [address] [facility], 5[facility] PLLC complaint) [facility] site w/o Isabelle CASE, [address] [facility]/sys [place], [place], involvOther [place], [address], [place], [place]cf [place], [place], [place], (current) [id number], [address]. [id number], drug [place]. tel:+[phone] [place] therapySicca tel:[phone] tel:+315 syndrome, [phone] unspecifiedGE RD with esophagitis Arthritis Arthritis [facility] CHALO [facility] 8 5794 PLLC, 5794 PLLC [facility], [place], [place], [place], [place], [id number], [id number], [place]. [place] tel:[phone] tel:[phone] Arthritis Arthritis [facility] CHALO [facility] 8 5794 PLLC, 5794 PLLC [facility], [place], [place], [place], [place], [id number], [id number], [place]. [place] tel:[phone] tel:[phone] Arthritis Arthritis [facility] CHALO [facility] 8 Jimmie. PLLC, 5794 PLLC 5794 [facility], [place], [place], [place], [place], [id number], [id number], [place]. tel:[phone] tel:[phone] Arthritis Arthritis RA w Brunilda CASE [facility] rheumatoid Patrick. [facility] factor of 8 5794 PLLC, 5794 PLLC multiple [facility] sites w/o [place], organ [place], [place], [place], [id number], [id number], [place]. [place] tel:[phone] tel:[phone] Arthritis Arthritis RA w/ Ramesh CASE [facility] rheumatoid Lizbeth. 5794 [facility] factor of 8 [facility] PLL[facility], [address] [facility] w/o [place], [place], organ [place], [place], involvement [id number], [place], . [id number], tel:[phone] [place] [phone] tel:[phone] Arthritis Arthritis RA w/ [place]ain Referring [facility] rheumatoid CHALO Waters. Provider: [facility] factor of 8 5794 [place] [facility], 5794 PLLC Located within [facility] Suhail CASE, [facility] w/o [place], [address] [place], organ [place], Najma [place], involvementOt [place], Street [place], her local intermodal truck driver [id number], [address], [id number], (current) [place]. [place], [place], drug tel:[phone]. tel:+[phone] therapyHypert [id number] tel:[phone] ension [phone] Arthritis Arthritis RA w/ [place] Specialist: [facility] rheumatoid CHALO Waters. Chava [facility] factor of 8 [address] [facility], 5[address] PLLC [facility] mary[facility]alejaziel CASE, [address] [facility] w/o [place], [place], organ [place], [address], [place], [place], [place], [place], her local intermodal truck driver [id number], [address]. [id number], (current) [place]. tel:[phone] [place] drug tel:[phone] tel:[phone] therapySicca [phone] syndrome, unspecifiedAg e-related osteoporosis without current pathological fractureOther intervertebra l disc degeneration, lumbar regionTrigger finger, left ring finger Arthritis Arthritis RA w/ Brunilda CASE [facility] rheumatoid Collins. [facility] factor of 8 5794 PLLC, 5794 PLLC [facility] w/o [place], [place], organ [place], [place], [place], [place], [id number], [id number], [place]. [place] tel: tel:+ [phone] Arthritis Arthritis RA w/ Dav CASE [facility] rheumatoid Andry. Evelio Associates factor of 8 5794 PLLC, 5794 PLLC multiple [facility] sites w/o [place], [place], organ [place], [place], [place], [place], [id number], [id number], [place]. [place] tel:[phone] tel:[phone] Arthritis Arthritis RA w/ [place]ain Specialist: [facility] rheumatoid CHALO Waters. Chava [facility] factor of 8 [address] [facility], 5794 PLLC [facility], [address] [facility] w/o [place], [facility] [place], organ [place], [address], [place], involvementSi [place], [place], [place], cca syndrome, [id number], [address]. [id number], unspecifiedOt [place]. tel:+[phone] [place] her tel:[phone] tel:[phone] intervertebra [phone] l disc degeneration, lumbar regionHyperte nsionAge-rela jennifer osteoporosis without current pathological fracture Arthritis Arthritis Other long [facility] term MD Terrell. [facility] (current) 7 5794 PLLC, 5794 PLLC drug therapy [facility], [place], [place], [place], [place], [place], [id number], [id number], [place]. [place] tel:[phone] tel:[phone] Arthritis Arthritis [facility] MD Terrell. [facility] 7 5794 PLLC, 5794 PLLC [facility], [place], [place], [place], [place], [place], [id number], [id number], [place]. [place] tel:[phone] tel:[phone] Arthritis Arthritis RA w/ [facility] Specialist: [facility] rheumatoid 7- MD Terrell. Chava [facility] factor of 7 [address] [facility], 5794 PLLC denisha Walton MD, [address] [facility] sites w/o [place], [facility], organ [place], [address], [place], [place]Ag [place], [place], [place], [place], e-related [id number], [address]. [id number], osteoporosis [place]. tel:+[phone] [place] without tel:[phone] tel:[phone] current [phone] pathological fractureSicca syndrome, unspecifiedOt her local intermodal truck driver (current) drug therapyHypert ensionTIA Arthritis Arthritis RA w [facility] rheumatoid 8 MD Terrell. [facility] factor of 7 5794 PLLC, 5794 PLLC [facility] sites w/o [place], [place], organ [place], [place], [place], [id number], [id number], [place]. US tel:[phone] tel:[phone] Arthritis Arthritis RA Alan Specialist: [facility] rheumatoid 6 CHALO [facility] factor of 7 [address] [facility], 5794 PLLC denisha Walton MD, [address] [facility] sites w/o [place], [facility], organ [place], [address], [place], [place]Ag [place], [place], [place], [place], e-related [id number], [address]. [id number], osteoporosis [place]. tel:+[phone] [place] without tel:[phone] tel:[phone] current [phone] pathological fractureOther intervertebra l disc degeneration, lumbar regionOther chcf (current) drug therapy Arthritis Arthritis RA w/ [facility] rheumatoid 1- MD Terrell. [facility] factor of 7 5794 PLLC, 5794 PLLC [facility] sites w/o [place], [place], organ [place], [place], [place], [id number], [id number], [place]. [place] tel:+ tel:+ [phone] Arthritis Arthritis RA w/ [facility] rheumatoid CHALO Waters. [facility] factor of 7 5794 PLLC, 5794 PLLC multiple [facility] sites w/o [place], [place], organ [place], [place], [place], c[place] syndrome, [id number], [id number], unspecifiedOt [place]. [place] her tel:+ tel:+ intervertebra [phone] l disc degeneration, lumbar regionAge-rel ated osteoporosis without current pathological fractureOther chcf (current) drug therapy Arthritis Arthritis Other long [facility] term MD Terrell. [facility] (current) 7 5794 PLLC, 5794 PLLC drug therapy [facility] [place], [place], [place], [place], [place], [place], [id number], [id number], [place]. [place] tel:+ tel:+ [phone] Arthritis Arthritis RA w/ [facility] rheumatoid MD Terrell. [facility] factor of 7 5794 PLLC, 5794 PLLC multiple [facility] sites w/o [place], [place], organ [place], [place], [place], e-related [id number], [id number], osteoporosis [place]. [place] without tel:+ tel:+ current [phone] pathological fractureSicca syndrome, unspecifiedOt her intervertebra l disc degeneration, lumbar region Arthritis Arthritis RA w/ [facility] [email or web address] [facility] rheumatoid CHALO Waters. [facility] factor of 7 5794 PLLC, 5794 PLLC multiple [facility] sites w/o [place], [place], organ [place], [place], [place], [place], cca syndrome, [id number], [id number], unspecified [place]. [place] tel:+ tel:+ [phone] Arthritis Arthritis RA w/ [facility] rheumatoid 1- MD Terrell. [facility] factor of 7 5794 PLLC, 5794 PLLC multiple [facility] sites w/o [place], [place], organ [place], [place], [place], [place], [id number], [id number], [place]. US tel: tel: [phone] Arthritis Arthritis RA w/ [facility] rheumatoid 5- MD Terrell. [facility] factor of 7 5794 PLLC, 5794 PLLC multiple [facility] sites w/o [place], [place], organ [place], [place], [place], [place] syndrome, [id number], [id number], unspecifiedAg [place]. [place] e-related tel: tel: osteoporosis [phone] without current pathological fractureOther intervertebra l disc degeneration, lumbar region Arthritis Arthritis Age-related [facility] osteoporosis 4-201 MD Terrell. [facility] without 6 5794 PLLC, 5794 PLLC current [facility] pathological [place], [place], fractureOther [place], [place], intervertebra [place], [place], l disc [id number], [id number], degeneration, [place]. [place] lumbar tel: tel: regionOther [phone] local intermodal truck driver (current) drug therapy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Rh eumatoid arthritisSicc a syndrome, unspecified Arthritis Arthritis RA w/ [facility] rheumatoid 3-201 PA-C [facility] factor of 6 Jimmie. PLLC, 5794 PLLC multiple 5794 [facility] sites w/o [facility]vales [place], organ [place], [place], involvement[place], [place], her chcf [place], [id number], (current) [id number], [place] drug [place]. tel: therapyOther tel: [phone] intervertebra [phone] l disc degeneration, lumbar regionSicca syndrome, unspecified Arthritis Arthritis RA w/ [facility] rheumatoid 1-201 MD Terrell. [facility] factor of 6 5794 PLLC, 5794 PLLC multiple [facility] sites w/o [place], [place], organ [place], [place], [place], [place] syndrome, [id number], [id number], unspecifiedOt [place]. [place] her chcf tel:+4 tel:[phone] (current) [phone] drug therapyOther intervertebra l disc degeneration, lumbar region Arthritis Arthritis RA w/ Brunilda [facility] rheumatoid Collins. [facility] factor of 6 5794 PLLC, 5794 PLLC multiple [facility] sites w/o [place], [place], organ [place], [place], [place], [place], [id number], [id number], [place]. [place] tel:+4 tel:[phone] Arthritis Arthritis RA w [facility] rheumatoid CHALO Waters. [facility] factor of 6 5794 PLLC, 5794 PLLC multiple [facility] sites w/o [place], [place], organ [place], [place], [place], [place] syndrome, [id number], [id number], unspecifiedOt [place]. [place] her chcf tel:+4 tel:[phone] (current) [phone] drug therapyAge-re lated osteoporosis without current pathological fracture Arthritis Arthritis Age-related [facility] osteoporosis MD Terrell. [facility] without 6 5794 PLLC, 5794 PLLC current [facility] pathological [place], [place], fracture [place], [place], [place], [place], [id number], [id number], [place]. [place] tel:+ tel:[phone] Arthritis Arthritis RA w/ [facility] rheumatoid CHALO Waters. [facility] factor of 6 5794 PLLC, 5794 PLLC multiple [facility] sites w/o [place], [place], organ [place], [place], [place], her local intermodal truck driver [id number], [id number], (current) [place]. [place] drug tel:+ tel:+ therapyAge-re [phone] lated osteoporosis without current pathological fracture Arthritis Arthritis RA w/ [facility] rheumatoid CHALO Waters. [facility] factor of 6 5794 PLLC, 5794 PLLC multiple [facility] sites w/o [place], [place], organ [place], [place], [place], her chcf [id number], [id number], (current) [place]. [place] drug therapy tel: tel:+ [phone] Arthritis Arthritis Rheumatoid [facility] arthritisOthe MD Terrell. [facility] r local intermodal truck driver 6 5794 PLLC, 5794 PLLC (current) [facility] drug therapy [place], [place], [place], [place], [place], [place], [id number], [id number], [place]. [place] tel: tel: [phone] Arthritis Arthritis RA w/ [facility] rheumatoid CHALO Waters. [facility] factor of 6 5794 PLLC, 5794 PLLC multiple [facility] [place] sites w/o [place], [place], organ [place], [place], [place], [place] chcf [id number], [id number], (current) [place]. [place] drug therapy tel: tel: [phone] Arthritis Arthritis RA w/ [facility] rheumatoid CHALO Waters. [facility] factor of 5 5794 PLLC, 5794 PLLC multiple [facility] sites w/o [place], [place], organ [place], [place], [place], [place] syndrome, [id number], [id number], unspecifiedAg [place]. [place] e-related tel: tel:+[phone] without current pathological fractureOther chcf (current) drug therapy Arthritis Arthritis Anshu CASE [facility] [address] [facility] [address] [place] [facility], [address], [facility], [place], [place], [place], [id number], [place], [place]. [id number], tel:[phone] [place] [phone] tel:[phone] Arthritis Arthritis [facility] 7- MD Terrell. [facility] 4 5794 PLLC, 5794 PLLC [facility], [place], [place], [place], [place], [place], [id number], [id number], [place]. US tel:[phone] tel:[phone] Arthritis Arthritis [facility] 3- CHALO Waters. [facility] 4 5794 PLLC, 5794 PLLC [facility], [place], [place], [place], [place], [place], [id number], [id number], [place]. US tel:[phone] tel:[phone] Arthritis Arthritis [facility] 4- MD Terrell. [facility] 3 5794 PLLC, 5794 PLLC [facility], [place], [place], [place], [place], [place], [id number], [id number], [place]. US tel:[phone] tel:[phone] Arthritis Arthritis [facility] 2 CHALO Slade. [facility] 3 5794 PLLC, 5794 PLLC [facility], [place], [place], [place], [place], [place], [id number], [id number], [place]. [place] tel:[phone] tel:[phone] Arthritis Arthritis [facility] 7- CHALO Waters. Provider: [facility] 2 5794 Rik PLLC, 5794 PLLC [facility], [facility], [address] [facility], [place], , [place], [place], [place], [address]. [place], [id number], tel:[phone], [place]. [id number] [place] tel:+[phone] [facility] tel:[phone] Provider: [id number] Sergio Vaughn, [address] [facility] [address], [place], [address]. tel:[phone] Arthritis Arthritis Nov-0 [facility] 1 PACristina Provider: [facility] 1 Jimmie. Sergio PLLC, 5794 PLLC [address] Johana, [facility] [address] [place], [place], [facility], [place], [place] [address], [place], [place], [place], [id number], [id number], [address]. [place]. tel:+[phone] tel:+[phone] tel:[phone] Arthritis [facility]ritis [facility] MD Terrell. Provider: [facility] [address] [facility], 5794 PLLC [facility], [address] [place], [place], [facility], [place], [place] [address], [place], [id number], [place], [place], [id number], [place]. [address]. [place] tel:+[phone] tel:+[phone] tel:[phone] Family History Family Member Diagnosis Age At Onset Child Father Immunizations Vaccine Date Status Comments Influenza, injectable, administered Source: Other Provider quadrivalent, split virus, 16 years or older Afluria Quad [id number] Influenza, injectable, administered Source: Other Provider trivalent, split virus, 4 years and older, Fluvirin [id number] Influenza, split virus, administered Source: Other Provider injectable, 3 years and older Fluvirin [id number] Flu (split) (3 yrs or older) administered Source: New Immunization Record Allergic to Zoster administered Source: New Immunization Record Influenza virus vaccine, administered Source: Other Provider Injection pneumo (2 yrs or older) administered Source: New Immunization Record (PPV23) Payers Payer name Insurance type Covered green party ID Authorization(s) BCBS No Referral Required [id number] Social History Type Description Quantity Date Captured Comments Alcohol Use Details Unknown Caffeine Use Details Unknown Tobacco Use Status Ex-cigarette smoker Smoking Status Former smoker Smoking Tobacco Use Cigarette: No Details Available Cigarette: No Details Available Details Sex Female Vital Signs Date / Height Weight BMI Pulse Blood Temperature Respiratory Body Head BMI Pulse Inhaled Time: Rate Pressure Rate Surface Circumference percentile Ox Ox Area 65.00 152.00 25.2 134/82 2018 in lbs 9 mm[Hg] 10:26 kg/m AM eter (2) Chief Complaint And Reason For Visit Most recent encounter only, dated '10/08/2017 10:20'. Rheumatoid arthritis (chief complaint). Description: The pain severity is 7/10. Patient is experiencing generalized morning stiffness for 2 Hours, eye symptoms including dryness and dry mouth. Patient denies having abdominal pain, infection, loss of appetite, fever, pleuritic pain and shortness of breath ( dyspnea). Reason For Referral Reason For Referral No [...] Aly Rodriguez [address] [place], [place], [id number] [phone] Ordered: Referrals: Allopathic & Osteopathic Physicians : Internal Medicine : Gastroenterology. Aly Rodriguez Referral Ordered: ordered *DXA BONE DENSITY, AXIAL Appointment Molly Hernandez BOOKED Appointment Molly Hernandez BOOKED Appointment Molly Hernandez BOOKED History Of Present Illness Encounter Date Complaint History Of Present Illness Rheumatoid arthritis The pain severity is 7/10. Patient is experiencing generalized morning stiffness for 2 Hours, eye symptoms including dryness and dry mouth. Patient denies having abdominal pain, infection, loss of appetite, fever, pleuritic pain and shortness of breath (dyspnea). Functional Status Date Functional Assessment No information Medications Administered Medication Instructions Dosage Effective Dates Status Comments (start - stop) prednisone 2.5 mg take 1 tablet by - No Longer tablet oral route 1-2 Active times as needed Instructions Date Instruction Additional Information Risks/benefits of [...]
[2017-11-02 08:05] VITALS: BP 131/77
--- NOTE | 2017-11-02 08:32 | UC ---
Respiratory Complaint HPI - HPI Summary HPI Summary: returned from [place] few days ago and now has dry harsh cough with occasional yellow sputum. feeling worse today. has trued no meds thus far - History of Current Complaint Chief Complaint: UCGeneralIllness Stated Complaint: FEVER CHEST CONGESTION Time Seen by Provider: 11/02/17 08:25 Hx Obtained From: Patient Onset/Duration: Gradual Onset Timing: Constant Pain Intensity: 1 Character: Cough: Nonproductive, Cough: Productive Aggravating Factors: Recumbent Position Alleviating Factors: Nothing Associated Signs And Symptoms: Positive: Nasal Congestion - Allergies/Home Medications Allergies/Adverse Reactions: Allergies Allergy/AdvReac Type Severity Reaction Status Date / Time Perfume [Fragrance] Allergy BREATHING Verified 11/02/17 08:17 mold and smuts Allergy Difficulty Uncoded 11/02/17 08:17 Breathing Home Medications: Home Medications Cyclosporine 0.05% OPHTH (NF) [Restasis 0.05% OPHTH] 1 drop OTIC BID 11/02/17 [ History Confirmed 11/02/17] Lansoprazole 15 mg PO DAILY 11/02/17 [History Confirmed 11/02/17] Lisinopril TAB* [Prinivil TAB 5 MG*] 2.5 mg PO BEDTIME 11/02/17 [History Confirmed 11/02/17] Metoprolol Succinate 12.5 mg PO DAILY 11/02/17 [History Confirmed 11/02/17] predniSONE [Prednisone 5 MG TAB] 2.5 mg PO DAILY 11/02/17 [History Confirmed ] PMH/Surg Hx/FS Hx/Imm Hx Previously Healthy: Yes Cardiovascular History: Hypertension GI/ History: Gastroesophageal Reflux - Surgical History Surgical History: Yes Surgery Procedure, Year, and Place: eye surgery - cataract surgery w/ lens implants; tonsils; 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 - Family History Known Family History: Positive: Hypertension, Other - Negative for CVA - Social History Occupation: Retired Lives: With Family Alcohol Use: Daily Alcohol Amount: 2 GLASSES OF WINE WITH DINNER Substance Use Type: None Smoking Status (MU): Former Smoker Type: Cigarettes Amount Used/How Often: 3/4 PPD X 25 YEARS When Did the Patient Quit Smoking/Using Tobacco: 1984 Review of Systems Constitutional: Negative Respiratory: Cough Cardiovascular: Negative Neurovascular: Negative Musculoskeletal: Other: - R/A Neurological: Negative Psychological: Negative Is Patient Immunocompromised?: Yes - RA All Other Systems Reviewed And Are Negative: Yes Physical Exam Triage Information Reviewed: Yes Appearance: Well-Appearing, No Pain Distress, Well-Nourished Vital Signs: Initial Vital Signs Temp 98.4 F 11/02/17 07:58 Pulse 90 11/02/17 07:58 Resp 20 11/02/17 07:58 BP 131/77 11/02/17 07:58 Pulse Ox 95 11/02/17 07:58 Vital Signs Reviewed: Yes Eyes: Positive: Conjunctiva Clear Neck exam: Normal Respiratory: Positive: Lungs clear, Other: - harsh productive cough Cardiovascular Exam: Normal Neurological Exam: Normal Psychological Exam: Normal Skin Exam: Normal UC Diagnostic Evaluation - Laboratory O2 Sat by Pulse Oximetry: 95 Respiratory Course/Dx - Differential Dx/Diagnosis Differential Diagnosis/HQI/PQRI: Bronchitis, Lower Resp Infection Provider Diagnoses: Bronchitis Discharge - Sign-Out/Discharge Documenting (check all that apply): Patient Departure All imaging exams completed and their final reports reviewed: No Studies - Discharge Plan Condition: Stable Disposition: HOME Prescriptions: Azithromycin TAB* [Zithromax TAB (Z-BECKY) 250 mg #6 tabs] 2 tab PO .TODAY, THEN 1 DAILY #1 becky Patient Education Materials: Acute Bronchitis (ED) Referrals: Leola Jang MD [Primary Care Provider] - 2 Days (If no better) Additional Instructions: drink plenty of fluids and rest start antibiotic use Robitussin DM for cough relieve - Billing Disposition and Condition Condition: STABLE Disposition: Home - Attestation Statements Provider Attestation: Per institutional requirements, I have reviewed the chart, however, I was not consulted specifically or made aware of this patient by the midlevel provider. I did not personally evaluate, interact with , or disposition this patient.
== END 2017-11-02 08:53 | disposition home or self-care (01) ==
LOC: UCEAST 07:45
DX: J40 Bronchitis, not specified as acute or chronic (principal); I10 Essential (primary) hypertension; K21.9 Gastro-esophageal reflux disease without esophagitis; Z87.891 Personal history of nicotine dependence
CPT/HCPCS: 99212; G0463

== ENCOUNTER 2017-11-14 14:43 | Emergency (ER) | payer BC ==
[2017-11-14 14:58] VITALS: BP 146/78
--- NOTE | 2017-11-14 15:58 | UC ---
Ear Complaint HPI - HPI Summary HPI Summary: 77-year-old female presents with a ten-day history of left ear fullness that is progressively worse and instructed become painful over the last several days. Reports she was treated within the last 3 weeks for bronchitis with a course of these azithromycin. States symptoms started shortly after completing this medication. She did recently fly to [place]. Denies fever, chills, ear drainage, tinnitus, dizziness or vertigo, nasal congestion, sore throat, chest pain, shortness of breath, or cough. - History of Current Complaint Chief Complaint: UCEar Stated Complaint: EAR ACHE Time Seen by Provider: 11/14/17 15:39 Hx Obtained From: Patient Onset/Duration: Gradual Onset Severity Initially: Mild Severity Currently: Moderate Pain Intensity: 3 Aggravating Factors: Nothing Alleviating Factors: Nothing - Allergies/Home Medications Allergies/Adverse Reactions: Allergies Allergy/AdvReac Type Severity Reaction Status Date / Time Perfume [Fragrance] Allergy BREATHING Verified 11/14/17 14:59 mold and smuts Allergy Difficulty Uncoded 11/02/17 08:17 Breathing PMH/Surg Hx/FS Hx/Imm Hx - Additional Past Medical History Additional PMH: Rheumatoid arthritis, Sjogren's Endocrine History: Thyroid Disease Cardiovascular History: Hypertension GI/ History: Gastroesophageal Reflux Neurological History: TIA - Surgical History Surgical History: Yes Surgery Procedure, Year, and Place: eye surgery - cataract surgery w/ lens implants; tonsils; NEUROMA RT FOOT - Family History Known Family History: Positive: Hypertension, Other - Negative for CVA - Social History Occupation: Retired Lives: With Family Alcohol Use: None Alcohol Amount: 2 GLASSES OF WINE WITH DINNER Substance Use Type: None Smoking Status (MU): Former Smoker Type: Cigarettes Amount Used/How Often: 3/4 PPD X 25 YEARS When Did the Patient Quit Smoking/Using Tobacco: 1984 Review of Systems Constitutional: Negative Skin: Negative Eyes: Negative ENT: Ear Ache Respiratory: Negative Cardiovascular: Negative Is Patient Immunocompromised?: Yes - DMARD, prednisone All Other Systems Reviewed And Are Negative: Yes Physical Exam Triage Information Reviewed: Yes Appearance: Well-Appearing, No Pain Distress, Well-Nourished Vital Signs: Initial Vital Signs Temp 97.8 F 11/14/17 14:52 Pulse 55 11/14/17 14:52 Resp 14 11/14/17 14:52 BP 146/78 11/14/17 14:52 Pulse Ox 100 11/14/17 14:52 Vital Signs Reviewed: Yes Eyes: Positive: Conjunctiva Clear. Negative: Discharge ENT: Positive: Hearing grossly normal, TM bulging - Left, TM red - Left, Uvula midline. Negative: Pharyngeal erythema, Nasal congestion, Nasal drainage, Tonsillar swelling, Tonsillar exudate, Trismus, Muffled voice, Hoarse voice, Sinus tenderness Neck: Positive: Supple, Nontender, No Lymphadenopathy Respiratory: Positive: Lungs clear, Normal breath sounds, No respiratory distress Cardiovascular: Positive: RRR, No Murmur Neurological: Positive: Alert Skin Exam: Normal Ear Complaint Course/Dx - Course Course Of Treatment: 77-year-old female presents with a ten-day history of left ear pain. Exam revealed a left otitis media. Will treat with Augmentin twice a day 10 days. Patient is to schedule an appointment to follow up with her primary care provider in 2 weeks to have the ear rechecked. - Differential Dx/Diagnosis Provider Diagnoses: Left otitis media Discharge - Sign-Out/Discharge Documenting (check all that apply): Patient Departure All imaging exams completed and their final reports reviewed: No Studies - Discharge Plan Condition: Stable Disposition: HOME Prescriptions: Amoxicillin/Clavulanate TAB* [Augmentin TAB 875*] 875 mg PO BID #20 tab Patient Education Materials: Ear Infection (ED) Referrals: Leola Jang MD [Primary Care Provider] - 2 Weeks (For recheck of the ear.) Additional Instructions: Your exam revealed an infection of the left ear. We will start to on an antibiotic to treat you for this infection. Start Augmentin 1 tablet twice a day with food for 10 days. Be sure to finish the entire course of antibiotic even if you're feeling better. He may take acetaminophen (Tylenol) according to directions as needed for any pain or fever. Follow-up with your primary care provider in 2 weeks to have the ear rechecked. Seek immediate medical attention in the emergency room if you have a fever greater than 100.5 F despite taking acetaminophen, you have any drainage or blood from the ear, you become dizzy, have persistent vomiting, or any worsening of symptoms. - Billing Disposition and Condition Condition: STABLE Disposition: Home - Attestation Statements Provider Attestation: Per institutional requirements, I have reviewed the chart, however, I was not consulted specifically or made aware of this patient by the midlevel provider. I did not personally evaluate, interact with , or disposition this patient.
== END 2017-11-14 16:26 | disposition home or self-care (01) ==
LOC: UCEAST 14:43
DX: H66.92 Otitis media, unspecified, left ear (principal); Z87.891 Personal history of nicotine dependence
CPT/HCPCS: 99212; G0463

== ENCOUNTER 2019-01-11 10:24 | Emergency (ER) | payer BC ==
[2019-01-11 11:09] LABS: Urine Appearance Clear; Urine Bilirubin Negative (Negative); Urine Blood 1+ (Negative); Urine Color Yellow; Urine Glucose Negative (Negative); Urine Ketones Negative (Negative); Urine Nitrite Negative (Negative); Urine Protein Negative (Negative); Urine Specific Gravity 1.002 (1.010-1.030); Urine Urobilinogen Negative (Negative)
--- OUTSIDE RECORDS SUMMARY | 2019-01-11 11:17 | XMS REPORT | Continuity of Care Document ---
:1940 External Reference #:[id number] Author Name Kristofer Sanchez MD (transmitted by agent of provider Martha Portillo) Address [address] [place] [id number] Care Team Providers Name Role Phone Nidhi Flores MD - Care Team Information Aircraft Cleaner [phone] Rheumatology [facility] Physical Therapy - Care Team Information Aircraft Cleaner [phone] Physical Therapist Leola Jang MD - Internal Care Team Information Aircraft Cleaner Medicine Problems Active Problems Provider Date Abnormal urinary stream Sergio Vaughn M.D. Onset: 03/01/2011 Social History Type Date Description Comments Sex Unknown Tobacco Use Start: Unknown End: Former Cigarette Smoker Unknown Smoking Status Reviewed: 12/30/18 Former Cigarette Smoker ETOH Use Denies alcohol use Tobacco Use Start: Unknown End: Patient is a former smoker Quit in 1984 Unknown Recreational Drug Use Denies Drug Use Exercise Type/Frequency Exercises sporadically Allergies, Adverse Reactions, Alerts Active Allergies Reaction Severity Comments Date Demerol 03/04/2007 Amlodipine [place] toxic 02/27/2017 Hydrochlorothiazide thirst and excessive dry eyes 03/21/2017 Medications Active Medications SIG Qnty Indications Ordering Provider Date Levothyroxine Sodium Take 1 Tablet 30tabs Sergio Vaughn, 09/27/2010 Daily M.Yesenia 50mcg Tablets Calcium 600-D (750mg)1 po bid Sergio Vaughn, 11/16/2008 M.DYecenia [id number] Tablets Albuterol Inhaler HFA 2 puffs up to 1units Neel Patterson 04/28/2008 qid mindy Best M.D.,FACP Fish Oil daily Other Physician 1200mg Capsules Practices Folic Acid 2 PO qd 100tabs Unknown 1mg Tablets Imuran 1 po 2x a day 270tabs Unknown 50mg Tablets (on hold) Rituxan every 6 months Unknown 100mg/10ML Solution Multi Vitamin 1 by mouth Unknown Tablets every day Aspirin Adult Low Dose 1 by mouth Unknown every day 81mg Tablets DR Citrucel 2 tabs twice a Unknown 500mg Tablets day as needed Gabapentin 2 tabs at bed Nidhi Flores 100mg Capsules time. Royal MD Metoprolol Succinate 1/2 tablet by Unknown ER mouth every day 25mg Tablets ER 24HR Lisinopril 1/2 tab by Unknown 5mg Tablets mouth every night Prednisone take one Unknown 2.5mg Tablets capsule/tablet daily by mouth Milk Thistle 1 by mouth Unknown 140mg every day Capsules Medications Administered in Office Medication SIG Qnty Indications Ordering Provider Date ARTUR Vaughn M.D. 08/10/2007 Injection ARTUR Vaughn M.D. 08/10/2007 Injection Immunizations CPT Code Status Date Vaccine Lot # [id number] Given 12/24/2009 Influenza Virus 3Yrs & Over 35613 Given 11/09/2008 Flu Vac (History By Patient> 59452 Given 12/08/2007 Influenza Virus 3Yrs & Over 52772 Given 12/08/2007 Influenza Virus 3Yrs & Over 08065 Given 12/09/2006 Influenza Virus 3Yrs & Over 43363 Given 12/09/2006 Influenza Virus 3Yrs & Over 65851 Given 12/09/2006 Influenza Virus 3Yrs & Over 48890 15258 Given 10/10/2003 Td (History By Patient) 15889 Given 01/18/2003 Pneumovax (History By Patient) Vital Signs Date Vital Result Comment 12/30/2018 11:38am Height 63 inches 5'3" Weight 150.00 lb Heart Rate 66 /min BP Systolic Sitting 124 mmHg BP Diastolic Sitting 76 mmHg Respiratory Rate 16 /min Body Temperature 98.3 F BMI (Body Mass Index) 26.6 kg/m2 03/21/2017 3:20pm Height 63 inches 5'3" Weight 145.00 lb No shoes Heart Rate 64 /min BP Systolic Sitting 196 mmHg Rue reg cuff BP Diastolic Sitting 104 mmHg Rue reg cuff BP Systolic Standing 198 mmHg Rue reg cuff BP Diastolic Standing 102 mmHg Rue reg cuff Respiratory Rate 16 /min BMI (Body Mass Index) 25.7 kg/m2 Ejection Fraction 60-65% 12/17/2016-echo Results Description No Information Available Procedures Date Code Description Status 04/09/2010 14745905 Mammogram Completed 03/20/2009 [id number] Mammogram Completed 03/17/2008 [id number] Bone Mineral Density Test Completed Medical Devices Description No Information Available Encounters Description No Information Available Assessments Date Code Description Provider 12/30/2018 K80.20 Calculus of gallbladder without cholecystitis Kristofer Sanchez MD without obstruction Plan of Treatment Future Appointment(s):01/27/2019 9:00 am - Kristofer Sanchez MD at [facility]01/18/2019 2:15 pm - Kristofer Sanchez MD at [facility]12/30/2018 - Kristofer Sanchez MDK80.20 Calculus of gallbladder without cholecystitis without obstruction Functional Status Description No Information Available Mental Status Description No Information Available Referrals Description No Information Available
[2019-01-11 11:20] LABS: ABS Basophils 0.1 10^3/ul (0-0.2); ABS Lymphocytes 1.3 10^3/ul (1.0-4.8); ABS Monocytes 0.9 10^3/ul (0-0.8); ABS Neutrophils 10.3 10^3/ul (1.5-7.7); Eosinophil % 0.3 %; Hematocrit 34 % (35-47); Hemoglobin 11.8 g/dL (12.0-16.0); Mean Corpuscular HGB Conc 34 g/dL (31-36); Mean Corpuscular Hemoglobin 32 pg (27-31); Mean Corpuscular Volume 92 fL (80-97); Mean Platelet Volume 7.6 fL (7.4-10.4); Nucleated Red Blood Cells % 0.1; Platelet Count 234 10^3/uL (150-450); Red Blood Count 3.73 10^6 /uL (3.70-4.87); Red Cell Distribution Width 14 % (10-15); White Blood Count 12.5 10^3/uL (3.5-10.8)
[2019-01-11 11:27] LABS: Urine Bacteria Absent (Absent); Urine Red Blood Cell Trace(0-2/hpf) (Absent); Urine Squamous Epithelial Cell Present (Absent); Urine White Blood Cell Absent (Absent)
[2019-01-11 11:38] LABS: Albumin 3.7 g/dL (3.2-5.2); Albumin/Globulin Ratio 1.7 (1-3); BUN/Creatinine Ratio 15.5 (8-20); C Reactive Protein 105.4 mg/L (<8.01); EGFR African American 95.8 (>60); EGFR Non-African American 79.2 (>60); Globulin 2.2 g/dL (2-4); Potassium 3.8 mmol/L (3.5-5.0); Total Protein 5.9 g/dL (6.4-8.9)
--- NOTE | 2019-01-11 12:18 | ED ---
Abdominal Pain/Female - HPI Summary HPI Summary: 78-year-old female with significant past medical history of rheumatoid arthritis, Sjogren syndrome, possible lupus, 1.9 cm gallstone found one week ago presents to the emergency department today complaining of increased abdominal pain in the right upper quadrant which began last night. She states she had feelings of fever, chills and a "stabbing" 8 out of 10 right upper quadrant abdominal pain. She states she is afebrile upon arrival to the emergency department but she is concerned that that may be due to her RA medication as it is an immunomodulating. She endorses having a scheduled cholecystectomy on Friday, January 18, [address] Sanchez. She denies chest pain, shortness of breath, rash, pain with urination. - History of Current Complaint Chief Complaint: EDFever Stated Complaint: FEVER,ABD CRAMPS PER PT Time Seen by Provider: 01/11/19 10:32 Hx Obtained From: Patient Onset/Duration: Sudden Onset, Lasting Days Timing: Constant Severity Initially: Mild Severity Currently: Mild Pain Intensity: 1 Pain Scale Used: 0-10 Numeric Location: Discrete At: RUQ Radiates: No Character: Sharp Associated Signs and Symptoms: Positive: Fever. Negative: Diaphoresis, Cough, Chest Pain, Back Pain, Urinary Symptoms, Nausea, Vomiting Allergies/Adverse Reactions: Allergies Allergy/AdvReac Type Severity Reaction Status Date / Time hydrochlorothiazide Allergy Severe eyes hurt Verified 01/11/19 10:32 meperidine [From Demerol] Allergy Severe TOO STRONG Verified 01/11/19 10:32 Perfume [Fragrance] Allergy Severe BREATHING Verified 01/11/19 10:32 amlodipine Allergy Unknown Unknown Verified 01/11/19 10:32 Reaction Details eggplant Allergy Severe roseacea Uncoded 01/07/19 10:51 mold and smuts Allergy Severe Difficulty Uncoded 01/07/19 10:51 Breathing PMH/Surg Hx/FS Hx/Imm Hx Endocrine/Hematology History: Reports: Hx Thyroid Disease - HYPOTHYROI Denies: Hx Diabetes Cardiovascular History: Reports: Hx Hypertension Denies: Hx Pacemaker/ICD Respiratory History: Reports: Hx Asthma - RARELY USES VENTOLIN INHALER Denies: Hx Chronic Obstructive Pulmonary Disease (COPD) GI History: Reports: Hx Gastroesophageal Reflux Disease - ON MEDICATION FOR Denies: Hx Ulcer Musculoskeletal History: Reports: Hx Arthritis - RHEUMATOID, Hx Rheumatoid Arthritis, Hx Osteoporosis Sensory History: Reports: Hx Cataracts - BILATERAL, Hx Contacts or Glasses - GLASSES Denies: Hx Hearing Aid Opthamlomology History: Reports: Hx Cataracts - BILATERAL, Hx Contacts or Glasses - GLASSES Neurological History: Reports: Other Neuro Impairments/Disorders - LUPUS Psychiatric History: Denies: Hx Panic Disorder - Cancer History Hx Chemotherapy: No Hx Radiation Therapy: No - Surgical History Surgery Procedure, Year, and Place: eye surgery - cataract surgery w/ lens implants; tonsils; NEUROMA RT FOOT 1959' Hx Anesthesia Reactions: Yes - SENSITIVE TO SEDATION PER PATIENT Infectious Disease History: No Infectious Disease History: Denies: Hx Hepatitis, Hx Human Immunodeficiency Virus (HIV), History Other Infectious Disease, Traveled Outside the [place] in Last 30 Days - Family History Known Family History: Positive: Hypertension, Other - Negative for CVA - Social History Alcohol Use: Occasionally Alcohol Amount: 2 GLASSES OF WINE WITH DINNER Hx Substance Use: No Substance Use Type: Reports: None Hx Tobacco Use: No Smoking Status (MU): Former Smoker Type: Cigarettes Amount Used/How Often: 3/4 PPD X 25 YEARS Review of Systems Positive: Fever ENT: Negative Cardiovascular: Negative Respiratory: Negative Gastrointestinal: Negative Genitourinary: Negative Musculoskeletal: Negative Skin: Negative Neurological: Negative Psychological: Normal All Other Systems Reviewed And Are Negative: Yes Physical Exam Triage Information Reviewed: Yes Vital Signs On Initial Exam: Initial Vitals Temp Pulse Resp BP Pulse Ox 97.8 F 69 16 112/50 99 01/11/19 10:25 01/11/19 10:25 01/11/19 10:25 01/11/19 10:25 01/11/19 10:25 Vital Signs Reviewed: Yes Appearance: Positive: Well-Appearing, No Pain Distress, Well-Nourished Skin: Positive: Warm, Skin Color Reflects Adequate Perfusion Eyes: Positive: EOMI, SAMIRA ENT: Positive: Hearing grossly normal Respiratory/Lung Sounds: Positive: Clear to Auscultation, Breath Sounds Present Cardiovascular: Positive: RRR, S1, S2 Abdomen Description: Positive: No Organomegaly, Soft, Other:. Negative: Distended, Guarding Musculoskeletal: Positive: Strength/ROM Intact Neurological: Positive: Sensory/Motor Intact, Alert, Oriented to Person Place, Time, Normal Gait, Speech Normal Psychiatric: Positive: Normal AVPU Assessment: Alert Procedures - Sedation Patient Received Moderate/Deep Sedation with Procedure: No Diagnostics - Vital Signs Vital Signs Temp Pulse Resp BP Pulse Ox 01/11/19 10:25 97.8 F 69 16 112/50 99 - Laboratory Lab Results: Lab Results 01/11/19 01/11/19 01/11/19 Range/Units 10:54 11:07 11:07 WBC 12.5 H (3.5-10.8) 10^3/uL RBC 3.73 (3.70-4.87) 10^6 /uL Hgb 11.8 L (12.0-16.0) g/dL Hct 34 L (35-47) % MCV 92 (80-97) fL MCH 32 H (27-31) pg MCHC 34 (31-36) g/dL RDW 14 (10-15) % Plt Count 234 (150-450) 10^3/uL MPV 7.6 (7.4-10.4) fL Neut % (Auto) 81.9 % Lymph % (Auto) 10.0 % [place] % (Auto) 7.4 % Eos % (Auto) 0.3 % Baso % (Auto) 0.4 % Absolute Neuts (auto) 10.3 H (1.5-7.7) 10^3/ul Absolute Lymphs (auto) 1.3 (1.0-4.8) 10^3/ul Absolute Monos (auto) 0.9 H (0-0.8) 10^3/ul Absolute Eos (auto) 0.0 (0-0.6) 10^3/ul Absolute Basos (auto) 0.1 (0-0.2) 10^3/ul Absolute Nucleated RBC 0.0 10^3/ul Nucleated RBC % 0.1 Sodium 134 L (135-145) mmol/L Potassium 3.8 (3.5-5.0) mmol/L Chloride 101 (101-111) mmol/L Carbon Dioxide 26 (22-32) mmol/L Anion Gap 7 (2-11) mmol/L BUN 11 (6-24) mg/dL Creatinine 0.71 (0.51-0.95) mg/dL Est GFR ( Amer) 95.8 (>60) Est GFR (Non-Af Amer) 79.2 (>60) BUN/Creatinine Ratio 15.5 (8-20) Glucose 105 H (70-100) mg/dL Lactic Acid (0.5-2.0) mmol/L Calcium 9.0 (8.6-10.3) mg/dL Total Bilirubin 1.00 (0.2-1.0) mg/dL AST 23 (13-39) U/L ALT 15 (7-52) U/L Alkaline Phosphatase 74 (34-104) U/L C-Reactive Protein 105.40 H (<8.01) mg/L Total Protein 5.9 L (6.4-8.9) g/dL Albumin 3.7 (3.2-5.2) g/dL Globulin 2.2 (2-4) g/dL Albumin/Globulin Ratio 1.7 (1-3) Lipase 13 (11.0-82.0) U/L Urine Color Yellow Urine Appearance Clear Urine pH 6.0 (5-9) Ur Specific [place] 1.002 L (1.010-1.030) Urine Protein Negative (Negative) Urine Ketones Negative (Negative) Urine Blood 1+ A (Negative) Urine Nitrate Negative (Negative) Urine Bilirubin Negative (Negative) Urine Urobilinogen Negative (Negative) Ur Leukocyte Esterase Negative (Negative) Urine WBC (Auto) Absent (Absent) Urine RBC (Auto) Trace(0-2/hpf) (Absent) Ur Squamous Epith Cells Present A (Absent) Urine Bacteria Absent (Absent) Urine Glucose Negative (Negative) 01/11/19 Range/Units 11:07 WBC (3.5-10.8) 10^3/uL RBC (3.70-4.87) 10^6 /uL Hgb (12.0-16.0) g/dL Hct (35-47) % MCV (80-97) fL MCH (27-31) pg MCHC (31-36) g/dL RDW (10-15) % Plt Count (150-450) 10^3/uL MPV (7.4-10.4) fL Neut % (Auto) % Lymph % (Auto) % [place] % (Auto) % Eos % (Auto) % Baso % (Auto) % Absolute Neuts (auto) (1.5-7.7) 10^3/ul Absolute Lymphs (auto) (1.0-4.8) 10^3/ul Absolute Monos (auto) (0-0.8) 10^3/ul Absolute Eos (auto) (0-0.6) 10^3/ul Absolute Basos (auto) (0-0.2) 10^3/ul Absolute Nucleated RBC 10^3/ul Nucleated RBC % Sodium (135-145) mmol/L Potassium (3.5-5.0) mmol/L Chloride (101-111) mmol/L Carbon Dioxide (22-32) mmol/L Anion Gap (2-11) mmol/L BUN (6-24) mg/dL Creatinine (0.51-0.95) mg/dL Est GFR ( Amer) (>60) Est GFR (Non-Af Amer) (>60) BUN/Creatinine Ratio (8-20) Glucose (70-100) mg/dL Lactic Acid 0.8 (0.5-2.0) mmol/L Calcium (8.6-10.3) mg/dL Total Bilirubin (0.2-1.0) mg/dL AST (13-39) U/L ALT (7-52) U/L Alkaline Phosphatase (34-104) U/L C-Reactive Protein (<8.01) mg/L Total Protein (6.4-8.9) g/dL Albumin (3.2-5.2) g/dL Globulin (2-4) g/dL Albumin/Globulin Ratio (1-3) Lipase (11.0-82.0) U/L Urine Color Urine Appearance Urine pH (5-9) Ur Specific [place] (1.010-1.030) Urine Protein (Negative) Urine Ketones (Negative) Urine Blood (Negative) Urine Nitrate (Negative) Urine Bilirubin (Negative) Urine Urobilinogen (Negative) Ur Leukocyte Esterase (Negative) Urine WBC (Auto) (Absent) Urine RBC (Auto) (Absent) Ur Squamous Epith Cells (Absent) Urine Bacteria (Absent) Urine Glucose (Negative) Result Diagrams: 01/11/19 11:07 01/11/19 11:07 Lab Statement: Any lab studies that have been ordered have been reviewed, and results considered in the medical decision making process. Abdominal Pain Fem Course/Dx - Course Course Of Treatment: Patient was evaluated in the emergency department for abdominal pain. She was seen and examined. Her vitals are stable and she is afebrile. Laboratory studies and a right upper quadrant ultrasound was performed. Laboratory studies returned showing Mild leukocytosis with a white blood cell count of 12.5 with a left shift. There are no I abnormalities. Her CRP is significantly elevated at 105 this is likely due to her rheumatoid arthritis as this is her baseline. Her urine is negative for UTI. ultrasound of the right upper quadrant shows gallstones. No pericholecystic fluid or wall thickening is noted. Enlarged heterogeneous uterus likely representing myomatous change. Surgeon Dr. Sanchez came to the emergency department to examine the patient at approximately 1415. He feels there is nothing acutely going on with her gallbladder and that she may follow up as planned for surgery on Friday, January 18, 2019 and did not need prophylactic antibiotics. Patient was told to follow up with her primary care provider for further evaluation and management of her symptoms and for further investigation of the uteine mass on [facility]. She was told to return to the emergency department immediately if she developed any new or worsening symptoms. Pt agrees with this plan. - Diagnoses Differential Diagnosis: Positive: Constipation, Gall Bladder Disease Provider Diagnoses: Abdominal pain - Provider Notifications Discussed Care Of Patient With: Kristofer Sanchez Time Discussed With Above Provider: 13:34 Discharge ED - Sign-Out/Discharge Documenting (check all that apply): Patient Departure - Discharge Plan Condition: Stable Disposition: HOME Patient Education Materials: Abdominal Pain (ED) Referrals: Leola Jang MD [Primary Care Provider] - 1 Day Kristofer Sanchez MD [Medical Doctor] - Additional Instructions: You were seen in the emergency department for abdominal pain. We aren't sure what is causing your abdominal pain however it was determined that you had no acute infection of your gallbladder. Please follow-up with your primary care doctor for further evaluation and management of you symptoms. You are to have surgery as scheduled on Friday, January 18, 2019. Please return to the emergency department immediately should you develop any new or worsening symptoms. - Billing Disposition and Condition Condition: STABLE Disposition: Home
[2019-01-11 14:44] VITALS: BP 130/69
== END 2019-01-11 14:44 | disposition home or self-care (01) ==
LOC: ED 10:24
DX: R10.11 Right upper quadrant pain (principal); E03.9 Hypothyroidism, unspecified; I10 Essential (primary) hypertension; J45.909 Unspecified asthma, uncomplicated; K21.9 Gastro-esophageal reflux disease without esophagitis; M06.9 Rheumatoid arthritis, unspecified; M81.0 Age-related osteoporosis without current pathological fracture; Z79.899 Other long term (current) drug therapy; Z87.891 Personal history of nicotine dependence
CPT/HCPCS: 36415; 76705; 80053; 81003; 81015; 83605; 83690; 85025; 86140; 99283

== ENCOUNTER 2019-01-18 08:29 | Day surgery (SDC) | payer BC ==
[~2019-01-18 08:29] MED LIST: Buffered Lidocaine 1% SYRIN* 1 ML/SYRINGE INTRADERM ONE; Lactated Ringers 1000 ML Bag* 1,000 ML IV SCH; Sodium Citrate/Citric Acid* 15 ML UDC PO ONE
[2019-01-18] MEDS ORDERED: Sodium Citrate/Citric Acid* 15 ML UDC ONE (08:48)
[2019-01-18] MEDS ORDERED: ceFAZolin 2 GM in NS PREMIX(*) 2 GM/100 ML BAG IVPB ONE (08:49)
[2019-01-18] MEDS ORDERED: Buffered Lidocaine 1% SYRIN* 1 ML/SYRINGE INTRADERM ONE (08:49)
[2019-01-18] MEDS ORDERED: Bupivacaine 0.25% SDV* 30 ML ONE (10:00)
[2019-01-18] MEDS ORDERED: Propofol* 10 MG/ML 20 ML BTL ONE (10:28)
[2019-01-18] MEDS ORDERED: Lidocaine 2% PF * 5 ML VIAL ONE (10:28)
[2019-01-18] MEDS ORDERED: Rocuronium* 10 MG/ML VIAL ONE (10:29)
[2019-01-18] MEDS ORDERED: fentaNYL* 50 MCG/ML 2 ML VIAL (100 MCG VIAL) ONE ×2 (10:31→11:58)
[2019-01-18] MEDS ORDERED: Acetaminophen IV 1GM/100ML * 1,000 MG/100 ML VIAL IVPB ONE (11:21)
[2019-01-18] MEDS ORDERED: fentaNYL* 50 MCG/ML 2 ML VIAL (100 MCG VIAL) IV PRN (11:21)
[2019-01-18] MEDS ORDERED: Naloxone* 0.4 MG/ML 1 ML VIAL IV PRN (11:21)
[2019-01-18] MEDS ORDERED: Glycopyrrolate IV* 0.2 MG/ML 1 ML VIAL ONE (11:27)
[2019-01-18] MEDS ORDERED: Neostigmine Methylsulfate* 3 MG/3 ML SYRINGE ONE (11:27)
[2019-01-18] MEDS ORDERED: Ondansetron INJ* 2 MG/ML VIAL ONE (11:31)
[2019-01-18] MEDS ORDERED: Sugammadex * 200 MG/2 ML VIAL IV PUSH ONE (11:38)
[2019-01-18] MEDS ORDERED: Phenylephrine 40 MCG/ML SYRINGE ONE (11:42)
[2019-01-18] MEDS ORDERED: Ketorolac INJ* 30 MG/ML 1 ML VIAL ONE (11:47)
[2019-01-18] MEDS ORDERED: Acetaminophen IV 1GM/100ML * 100 ML ONE (11:58)
[2019-01-18 14:47] VITALS: BP 118/86
--- NOTE | 2019-01-18 20:34 | OP ---
DATE OF OPERATION: 01/18/19 [facility] DATE OF : 36 SURGEON: Kristofer Sanchez MD [place] MANAGER: YUNI Daugherty PRE-OP DIAGNOSIS: Cholecystitis. POST-OP DIAGNOSES: Cholecystitis, hepatic cystic lesion. OPERATIVE PROCEDURE: Robotic cholecystectomy, excision of hepatic cystic lesion. INDICATIONS: History of chronic cholecystitis. Risks of surgery included, but not limited to, bleeding, infection, injury to intraabdominal contents including the bowel, bile duct, cystic duct leak, no relief of symptoms explained to the patient, and she seemed to understand and agreed to the procedure and all questions were answered. DESCRIPTION OF PROCEDURE: The patient was taken to the operating room, placed supine. Preoperative antibiotics were given. After the successful induction of general endotracheal anesthesia, the abdomen was prepped and draped in sterile fashion. A time-out was performed indicating correct patient and correct procedure. Left upper quadrant trocar was placed under direct visualization of the camera using a bladeless Optiview trocar. Pneumoperitoneum was achieved with 15 mmHg. A camera was placed in the abdomen. The abdomen was scanned. There was no obvious injury from trocar placement. An 8-mm trocar was placed in the infraumbilical position and 2 right -sided 8-mm trocars were placed in a semicurved line going from left upper quadrant towards the right lower quadrant. The 5-mm trocar was replaced with an 8-mm robotic trocar. The patient was placed in the reverse Trendelenburg position, tilted slightly towards the left. The robot was brought in and docked. The fundus of the gallbladder was grasped and retracted up and over the liver. Some adhesions were noted to the infundibulum of the gallbladder, and these were taken down sharply along an avascular plane with a robotic scissors. Once this was completed, the cystic duct was identified, isolated, clipped, and divided. The cystic artery was identified, isolated, clipped, and divided. The gallbladder was removed from the hepatic bed using the scissors and cautery. A cystic area was noted on the liver adjacent to the fundus along with some surrounding chronic-appearing inflammatory or fibrous white tissue, which did not appear to be firm, but reactive. I was able to easily grasp the cystic area and divide it from the liver without bleeding. The gallbladder and this cystic structure which was only a few centimeters in diameter at most were placed into an Endobag and removed through the umbilical port site. The right upper quadrant was irrigated and aspirated dry. EBL minimal. Hemostasis was intact. The clips were in place. The abdomen was scanned and no other obvious abnormalities of the liver were noted. No injuries were noted in the abdomen. Pneumoperitoneum was released from the abdomen. The trocars were removed. The midline fascia at the umbilicus was closed with an 0 Vicryl suture. The skin was closed at each site with 3-0 Monocryl and glue applied to the skin. The patient tolerated the procedure well. She was extubated and taken to the recovery room in stable condition. [id number]/[facility] #: [id number] ADRIAN
== END 2019-01-18 14:47 | disposition home or self-care (01) ==
LOC: OR 08:29
PROVIDERS: ATTEND Surgery
DX: K80.10 Calculus of gallbladder with chronic cholecystitis without obstruction (principal); D13.5 Benign neoplasm of extrahepatic bile ducts; I10 Essential (primary) hypertension; K21.9 Gastro-esophageal reflux disease without esophagitis; E03.9 Hypothyroidism, unspecified; M06.9 Rheumatoid arthritis, unspecified; Z86.73 Personal history of transient ischemic attack (TIA), and cerebral infarction without residual deficits; Z87.891 Personal history of nicotine dependence
CPT/HCPCS: 47562; S2900; 88304; 88307; A9270-GY; J0690; J1885; J2405; J2704; J2710; J3010; J3490

== ENCOUNTER 2019-01-24 16:42 | Observation (INO) | payer BC ==
--- NOTE | 2019-01-24 18:16 | ED ---
Abdominal Pain/Female - HPI Summary HPI Summary: 78 year old female presents to the ED with a chief complaint of constant RUQ pain starting yesterday, worsening today. Patient had a cholecystectomy last Friday w Dr. Sanchez and felt fine until yesterday. Pain is a 10/10, worse with movement and eating. Patient took Tylenol w/ codeine at 1115 this morning but pain was not alleviated. Pain is slightly alleviated by lying down. No fevers. No vomiting or diarrhea Patient has a history of lupus. - History of Current Complaint Chief Complaint: EDGeneral Stated Complaint: RT SIDE PAIN PER PT Time Seen by Provider: 01/24/19 17:36 Hx Obtained From: Patient ?: No Onset/Duration: Sudden Onset - yesterday, Lasting Days, Still Present, Worse Since - yesterday Timing: Constant Severity Initially: Severe Severity Currently: Severe Pain Intensity: 10 Pain Scale Used: 0-10 Numeric Location: Discrete At: RUQ Radiates: No Character: Sharp Aggravating Factor(s): Food, Movement Alleviating Factor(s): Position Associated Signs and Symptoms: Negative: Fever Allergies/Adverse Reactions: Allergies Allergy/AdvReac Type Severity Reaction Status Date / Time hydrochlorothiazide Allergy Severe eyes hurt Verified 01/24/19 16:48 meperidine [From Demerol] Allergy Severe TOO STRONG Verified 01/24/19 16:48 Perfume [Fragrance] Allergy Severe BREATHING Verified 01/24/19 16:48 amlodipine Allergy Unknown Unknown Verified 01/24/19 16:48 Reaction Details eggplant Allergy Severe roseacea Uncoded 01/24/19 16:48 mold and smuts Allergy Severe Difficulty Uncoded 01/24/19 16:48 Breathing PMH/Surg Hx/FS Hx/Imm Hx Endocrine/Hematology History: Reports: Hx Thyroid Disease - HYPOTHYROI Denies: Hx Diabetes Cardiovascular History: Reports: Hx Hypertension Denies: Hx Pacemaker/ICD Respiratory History: Reports: Hx Asthma - RARELY USES VENTOLIN INHALER Denies: Hx Chronic Obstructive Pulmonary Disease (COPD) GI History: Reports: Hx Gastroesophageal Reflux Disease - ON MEDICATION FOR, Other GI Disorders - gallbladder Denies: Hx Ulcer Musculoskeletal History: Reports: Hx Arthritis - RHEUMATOID, Hx Rheumatoid Arthritis, Hx Osteoporosis Sensory History: Reports: Hx Cataracts - BILATERAL, Hx Contacts or Glasses - GLASSES Denies: Hx Hearing Aid Opthamlomology History: Reports: Hx Cataracts - BILATERAL, Hx Contacts or Glasses - GLASSES Neurological History: Reports: Hx Migraine, Other Neuro Impairments/Disorders - LUPUS Psychiatric History: Denies: Hx Panic Disorder - Cancer History Hx Chemotherapy: No Hx Radiation Therapy: No - Surgical History Surgery Procedure, Year, and Place: eye surgery - cataract surgery w/ lens implants; tonsils; 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 Hx Anesthesia Reactions: Yes - SENSITIVE TO SEDATION PER PATIENT Infectious Disease History: No Infectious Disease History: Denies: Hx Hepatitis, Hx Human Immunodeficiency Virus (HIV), History Other Infectious Disease, Traveled Outside the [place] in Last 30 Days - Family History Known Family History: Positive: Hypertension, Other - Negative for CVA - Social History Alcohol Use: Occasionally Alcohol Amount: 2 GLASSES OF WINE WITH DINNER Hx Substance Use: No Substance Use Type: Reports: None Hx Tobacco Use: No Smoking Status (MU): Former Smoker Type: Cigarettes Amount Used/How Often: 3/4 PPD X 25 YEARS Review of Systems Negative: Fever Positive: Abdominal Pain All Other Systems Reviewed And Are Negative: Yes Physical Exam - Summary Physical Exam Summary: Constitutional: Well-developed, Well-nourished, Alert. (-) Distressed Skin: Warm, Dry, incisions C/D/I HENT: Normocephalic; Atraumatic Eyes: Conjunctiva normal Neck: Musculoskeletal ROM normal neck. (-) JVD, (-) Stridor, (-) Nuchal rigidity Cardio: Rhythm regular, rate normal, Heart sounds normal; Intact distal pulses; Radial pulses are 2+ and symmetric. (-) Murmur Pulmonary/Chest wall: Effort normal. (-) Respiratory distress, (-) Wheezes, (-) Rales Abd: Soft, (-) Distension, (-) Guarding, + RUQ tenderness w voluntary rebound. Well healing scars on abdomen. Musculoskeletal: (-) Edema Lymph: (-) Cervical adenopathy Neuro: Alert, Oriented x3 Psych: Mood and affect Normal Triage Information Reviewed: Yes Vital Signs On Initial Exam: Initial Vitals Temp Pulse Resp BP Pulse Ox 97.7 F 68 18 213/92 99 01/24/19 16:43 01/24/19 16:43 01/24/19 16:43 01/24/19 16:43 01/24/19 16:43 Vital Signs Reviewed: Yes Procedures - Sedation Patient Received Moderate/Deep Sedation with Procedure: No Diagnostics - Vital Signs Vital Signs Temp Pulse Resp BP Pulse Ox 01/24/19 17:24 65 194/90 98 01/24/19 17:22 69 99 01/24/19 16:43 97.7 F 68 18 213/92 99 - Laboratory Result Diagrams: 01/25/19 05:33 01/25/19 05:33 Lab Statement: Any lab studies that have been ordered have been reviewed, and results considered in the medical decision making process. - Ultrasound Abd US Ultrasound Interpretation Completed By: Radiologist Summary of Ultrasound Findings: IMPRESSION: 1. There is absence of the gallbladder consistent with cholecystectomy with no. visible fluid collection in the gallbladder fossa or right upper quadrant. 2. The common bile duct is dilated measuring up to 10 mm diameter with no. visible choledocholithiasis to the extent visualized. An ED physician has reviewed this report. - EKG 20:18 Cardiac Rate: NL - 69bpm EKG Rhythm: Sinus Rhythm ST Segment: Normal Ectopy: None EKG Comparison: No Significant Change Summary of EKG Findings: An EKG at 20:18 reveals normal sinus rhythm 69 bpm, nml axis, nml intervals. No STEMI. No acute changes. An ED physician has reviewed and interpreted this EKG. Re-Evaluation - Re-Evaluation First Eval Re-Evaluation Time: 20:08 Change: Unchanged - Patient still has pain, she would like to be admitted. Second Eval Re-Evaluation Time: 20:20 Comment: Updated patient on CT findings including concern for left ovarian pathology. Patient given 4 morphine for pain Abdominal Pain Fem Course/Dx - Course Course Of Treatment: 78 year-old female with a recent cholecystectomy presents with right upper quadrant abdominal pain. Physical with tenderness of the right upper quadrant, well-healing incisions the abdomen. Plan for labs to look for infectious process, biliary obstruction. Ultrasound of the gallbladder. Patient's care discussed with Dr. Bennett on-call surgeon who agrees with plan. - Diagnoses Provider Diagnoses: Status post cholecystectomy, RUQ abdominal pain - Provider Notifications Discussed Care Of Patient With: Biju Bennett Time Discussed With Above Provider: 20:05 Instructed by Provider To: Other - At 20:[address] Parry who reviewed her scan. He says if she feels fine she can be discharged. If pain persists he would admit her. After re-eval, I spoke to Dr. Parry at 2009. He recommends a CT abdomen with PO contrast and an EKG and then he will admit. Discharge ED - Sign-Out/Discharge Documenting (check all that apply): Patient Departure - admit - Discharge Plan Condition: Stable Disposition: ADMITTED TO [facility] - Billing Disposition and Condition Condition: STABLE Disposition: Admitted to [facility] - Attestation Statements Document Initiated by Scribe: Yes Documenting Scribe: Talon Loving Provider For Whom Canelo is Documenting (Include Credential): Magaly Camargo MD. Scribe Attestation: ITalon, scribed for Magaly Camargo MD. on 01/25/19 at 1801. Scribe Documentation Reviewed: Yes Provider Attestation: The documentation as recorded by the scribe, Talon Loving accurately reflects the service I personally performed and the decisions made by me, Magaly Camargo MD. Status of Scribe Document: Viewed
[2019-01-24 18:17] LABS: ABS Basophils 0.1 10^3/ul (0-0.2); ABS Eosinophils 0.1 10^3/ul (0-0.6); ABS Lymphocytes 1.3 10^3/ul (1.0-4.8); ABS Monocytes 0.9 10^3/ul (0-0.8); ABS Neutrophils 10.9 10^3/ul (1.5-7.7); Eosinophil % 0.9 %; Hematocrit 43 % (35-47); Hemoglobin 14.5 g/dL (12.0-16.0); Lymphocyte % 9.6 %; Mean Corpuscular HGB Conc 34 g/dL (31-36); Mean Corpuscular Hemoglobin 32 pg (27-31); Mean Corpuscular Volume 94 fL (80-97); Mean Platelet Volume 7.5 fL (7.4-10.4); Nucleated Red Blood Cells % 0.2; Platelet Count 290 10^3/uL (150-450); Red Blood Count 4.56 10^6 /uL (3.70-4.87); Red Cell Distribution Width 13 % (10-15); White Blood Count 13.3 10^3/uL (3.5-10.8)
[2019-01-24 18:34] LABS: Albumin 4.2 g/dL (3.2-5.2); Albumin/Globulin Ratio 1.4 (1-3); BUN/Creatinine Ratio 15.5 (8-20); Calcium 9.9 mg/dL (8.6-10.3); EGFR African American 95.8 (>60); EGFR Non-African American 79.2 (>60); Globulin 2.9 g/dL (2-4); Potassium 4.1 mmol/L (3.5-5.0); Total Bilirubin 0.9 mg/dL (0.2-1.0); Total Protein 7.1 g/dL (6.4-8.9)
[2019-01-24] MEDS ORDERED: Lisinopril TAB* 5 MG PO ONE (20:08)
[2019-01-24] MEDS ORDERED: Metoprolol Tartrate TAB* 25 MG PO ONE (20:08)
[2019-01-24] MEDS ORDERED: oxyCODONE/Acetamin 5/325 MG* TAB PO ONE (20:08)
[2019-01-24] MEDS ORDERED: Iohexol 300* (CONTRAST) 10 ML SDV IV ONE (21:05)
[2019-01-24] MEDS ORDERED: Ondansetron INJ* 2 MG/ML VIAL IV ONE (22:23)
[2019-01-24] MEDS ORDERED: Morphine 4 MG/ML VIAL (1 ml) 4 MG/ML VIAL IV ONE (22:23)
[2019-01-24 22:58] LABS: Urine Appearance Clear; Urine Bilirubin Negative (Negative); Urine Blood 1+ (Negative); Urine Color Straw; Urine Glucose Negative (Negative); Urine Ketones Negative (Negative); Urine Nitrite Negative (Negative); Urine Protein Negative (Negative); Urine Specific Gravity 1.012 (1.010-1.030); Urine Urobilinogen Negative (Negative)
[2019-01-24 23:00] LABS: Urine Bacteria Absent (Absent); Urine Red Blood Cell Trace(0-2/hpf) (Absent); Urine Squamous Epithelial Cell Present (Absent); Urine White Blood Cell Trace(0-5/hpf) (Absent)
[2019-01-24] MEDS ORDERED: Ondansetron INJ* 2 MG/ML VIAL IV PRN (23:15)
[2019-01-24] MEDS ORDERED: HYDROmorphone INJ* 0.5 MG/0.5 ML SYRINGE IV SLOW PU PRN (23:15)
--- NOTE | 2019-01-25 00:14 | HP ---
CC: Leola Jang MD; [facility] * HISTORY AND PHYSICAL UPDATE: DATE OF ADMISSION: 01/24/19 HISTORY OF PRESENT ILLNESS: Ms. Hernandez is an 78-year-old female who is postop day 6 from laparoscopic cholecystectomy done robotically. She was discharged home in stable condition on the day of surgery and had done well up until yesterday when she noted abdominal pain, which she said were "gas pains." This was accompanied by elevated blood pressures. She did contact me through the service and we spoke on the phone on 2 occasions and the plan was for watchful waiting as the pain resolved and her blood pressure showed some improvement. Today, patient states her pain came back different and not crampy, but rather a constant epigastric pain extending towards the right upper quadrant. It did not radiate to her back. It was similar to her pain prior to undergoing gallbladder surgery. It was accompanied with decreased appetite, but no nausea , vomiting, or change in bowel habits. PAST MEDICAL HISTORY: 1. Rheumatoid arthritis. 2. Hypothyroidism. 3. Scoliosis. 4. Sjogren's. 5. Spinal stenosis. 6. GERD. PAST SURGICAL HISTORY: Reviewed and please see H and P from 12/30/18. MEDICATIONS: Medication list reviewed. ALLERGIES: Allergy list reviewed. PHYSICAL EXAMINATION GENERAL: Alert and oriented x3, in no apparent distress, had recently received morphine. VITAL SIGNS: Today, she is afebrile, blood pressure on arrival 213/92, currently 147/66 after being given medication, heart rate normal, O2 sat 97% on room air. HEENT: Mucous membranes are moist. NECK: No lymphadenopathy. LUNGS: Clear to auscultation bilaterally. ABDOMEN: Soft, nondistended. Tender in the epigastrium. Mild crepitans that I did appreciate on the left side, which I only appreciated due to the fact that I reviewed the CT scan and it did show subcutaneous emphysema. There was no tenderness on the left. Negative rebound. Healing surgical incisions with mild ecchymosis, but no erythema. No masses or hernia is noted. RECTAL: Exam not performed. EXTREMITIES: Within normal limits. DIAGNOSTIC STUDIES/LAB DATA: The patient underwent labs, which were reviewed, showed elevated white blood cell count of 13.3. Chemistry panel within normal limits with alk phos of 106, reference range is up to 104. Normal LFTs otherwise. Urinalysis showed 1+ blood. The patient underwent an ultrasound of the gallbladder. These images were reviewed and showed no fluid collection, 10 mm common bile duct without intrahepatic biliary ductal dilatation. The patient underwent a CAT scan of the abdomen and pelvis. This was reviewed and it did show subcutaneous emphysema on the left, did not show free air, did show some free fluid and showed a complex lesion that measured 12 x 14. This could represent neoplasm versus hematoma, although I feel less likely hematoma given the patient's hematocrit, which is actually up from preop. IMPRESSION: Abdominal pain of unclear etiology in a patient with a new pelvic mass of unclear etiology as well. I did not believe the patient is suffering with postcholecystectomy syndrome, although retained bile duct stone is still a potential. I would like to admit the patient for observation. Repeat labs in the morning. Contact Gynecology for consultation and obtain a CA-125. The patient's pain is similar to what she was dealing with preoperatively and the concern is that there was some other etiology all along, possibly reflux or other. The patient does show small hiatal hernia on the CT scan and this is a potential portion of the differential diagnosis as well as peptic ulcer disease. For now, admission, liquid diet, IV fluids, and pain control with antinausea and antacid medication. [id number]/[facility] #: [id number] [facility]
[2019-01-25] MEDS: HYDROcodone/ACETAMIN 5-325 MG* 1 TAB PO PRN ×3 (01:54→09:55)
[2019-01-25] MEDS: Lactated Ringers 1000 ML Bag* 1,000 ML IV SCH ×2 (01:55→15:16)
[2019-01-25 05:54] LABS: Hematocrit 38 % (35-47); Hemoglobin 12.9 g/dL (12.0-16.0); Mean Corpuscular HGB Conc 35 g/dL (31-36); Mean Corpuscular Hemoglobin 32 pg (27-31); Mean Corpuscular Volume 92 fL (80-97); Mean Platelet Volume 7.4 fL (7.4-10.4); Platelet Count 249 10^3/uL (150-450); Red Blood Count 4.05 10^6 /uL (3.70-4.87); Red Cell Distribution Width 13 % (10-15)
[2019-01-25] MEDS: Heparin VIAL(*) 5000 UNITS/ML VIAL (FIVE THOUSAND) SUBCUT SCH ×3 (05:56→21:17)
[2019-01-25] MEDS: Levothyroxine TAB* 50 MCG TAB PO SCH (06:01)
[2019-01-25 06:14] LABS: Albumin 3.6 g/dL (3.2-5.2); Albumin/Globulin Ratio 1.6 (1-3); BUN/Creatinine Ratio 14.1 (8-20); Calcium 9.3 mg/dL (8.6-10.3); EGFR Non-African American 89.3 (>60); Globulin 2.3 g/dL (2-4); Potassium 4.4 mmol/L (3.5-5.0); Total Bilirubin 0.9 mg/dL (0.2-1.0); Total Protein 5.9 g/dL (6.4-8.9)
[2019-01-25 06:47] LABS: ABS Eosinophils 0.2 10^3/ul (0-0.6); ABS Lymphocytes 1.3 10^3/ul (1.0-4.8); ABS Monocytes 1.6 10^3/ul (0-0.8); ABS Neutrophils 11.5 10^3/ul (1.5-7.7); Eosinophil % 1.4 %; Lymphocyte % 8.9 %
[2019-01-25] MEDS: Pantoprazole TAB * 40 MG TAB PO SCH (08:14)
--- NOTE | 2019-01-25 10:07 | PN ---
Progress Note - Progress Note Date of Service: 01/25/19 SOAP: Subjective:no nausea;6/10 pain in epigastric/RUQ region;hungry;passing flatus and loose stools;no dysuria [] Objective: Vital Signs Temp 99.5 F 01/25/19 07:34 Pulse 69 01/25/19 07:34 Resp 18 01/25/19 09:55 BP 140/66 01/25/19 07:34 Pulse Ox 92 01/25/19 07:34 Intake & Output 01/24/19 01/25/19 01/25/19 18:59 06:59 18:59 Intake Total 480 Output Total 300 Balance 180 Weight 145 lb 148 lb Intake: Oral 480 Output: Urine 300 abd:hypoactive bs;soft;nondistended;no guarding with palpation throughout; incisions intact with skin glue,surrounded by ecchymosis,no drainage or erythema ;no obvious masses Laboratory Last Values WBC 14.0 10^3/uL (3.5-10.8) H 01/25/19 05:33 RBC 4.05 10^6 /uL (3.70-4.87) 01/25/19 05:33 Hgb 12.9 g/dL (12.0-16.0) 01/25/19 05:33 Hct 38 % (35-47) 01/25/19 05:33 MCV 92 fL (80-97) 01/25/19 05:33 MCH 32 pg (27-31) H 01/25/19 05:33 MCHC 35 g/dL (31-36) 01/25/19 05:33 RDW 13 % (10-15) 01/25/19 05:33 Plt Count 249 10^3/uL (150-450) 01/25/19 05:33 MPV 7.4 fL (7.4-10.4) 01/25/19 05:33 Neut % (Auto) 78.6 % 01/25/19 05:33 Lymph % (Auto) 8.9 % 01/25/19 05:33 [place] % (Auto) 10.8 % 01/25/19 05:33 Eos % (Auto) 1.4 % 01/25/19 05:33 Baso % (Auto) 0.3 % 01/25/19 05:33 Absolute Neuts (auto) 11.5 10^3/ul (1.5-7.7) H 01/25/19 05:33 Absolute Lymphs (auto) 1.3 10^3/ul (1.0-4.8) 01/25/19 05:33 Absolute Monos (auto) 1.6 10^3/ul (0-0.8) H 01/25/19 05:33 Absolute Eos (auto) 0.2 10^3/ul (0-0.6) 01/25/19 05:33 Absolute Basos (auto) 0.0 10^3/ul (0-0.2) 01/25/19 05:33 Absolute Nucleated RBC 0.0 10^3/ul 01/25/19 05:33 Nucleated RBC % 0.0 01/25/19 05:33 Sodium 136 mmol/L (135-145) 01/25/19 05:33 Potassium 4.4 mmol/L (3.5-5.0) 01/25/19 05:33 Chloride 101 mmol/L (101-111) 01/25/19 05:33 Carbon Dioxide 29 mmol/L (22-32) 01/25/19 05:33 Anion Gap 6 mmol/L (2-11) 01/25/19 05:33 BUN 9 mg/dL (6-24) 01/25/19 05:33 Creatinine 0.64 mg/dL (0.51-0.95) 01/25/19 05:33 Est GFR ( Amer) 108.0 (>60) 01/25/19 05:33 Est GFR (Non-Af Amer) 89.3 (>60) 01/25/19 05:33 BUN/Creatinine Ratio 14.1 (8-20) 01/25/19 05:33 Glucose 122 mg/dL (70-100) H 01/25/19 05:33 Calcium 9.3 mg/dL (8.6-10.3) 01/25/19 05:33 Total Bilirubin 0.90 mg/dL (0.2-1.0) 01/25/19 05:33 AST 31 U/L (13-39) 01/25/19 05:33 ALT 25 U/L (7-52) 01/25/19 05:33 Alkaline Phosphatase 97 U/L (34-104) 01/25/19 05:33 Total Protein 5.9 g/dL (6.4-8.9) L 01/25/19 05:33 Albumin 3.6 g/dL (3.2-5.2) 01/25/19 05:33 Globulin 2.3 g/dL (2-4) 01/25/19 05:33 Albumin/Globulin Ratio 1.6 (1-3) 01/25/19 05:33 Urine Color Straw 01/24/19 22:50 Urine Appearance Clear 01/24/19 22:50 Urine pH 8.0 (5-9) 01/24/19 22:50 Ur Specific [place] 1.012 (1.010-1.030) 01/24/19 22:50 Urine Protein Negative (Negative) 01/24/19 22:50 Urine Ketones Negative (Negative) 01/24/19 22:50 Urine Blood 1+ (Negative) A 01/24/19 22:50 Urine Nitrate Negative (Negative) 01/24/19 22:50 Urine Bilirubin Negative (Negative) 01/24/19 22:50 Urine Urobilinogen Negative (Negative) 01/24/19 22:50 Ur Leukocyte Esterase Negative (Negative) 01/24/19 22:50 Urine WBC (Auto) Trace(0-5/hpf) (Absent) 01/24/19 22:50 Urine RBC (Auto) Trace(0-2/hpf) (Absent) 01/24/19 22:50 Ur Squamous Epith Cells Present (Absent) A 01/24/19 22:50 Urine Bacteria Absent (Absent) 01/24/19 22:50 Urine Glucose Negative (Negative) 01/24/19 22:50 [] Assessment:epigastric and RUQ pain s/p laparoscopic cholecystectomy 1 week ago; leukocytosis;LFTS normal CT ab/pel with complex cystic mass L pelvis [] Plan:try low fat diet;pain management;update ;?Desktop Architect consult ordered []
[2019-01-25 10:11] LABS: Indirect Bilirubin 0.7 mg/dL (0.3-1.0)
--- NOTE | 2019-01-25 15:54 | PN ---
Progress Note - Progress Note Date of Service: 01/25/19 Note: 78 yo 5 days s/p cholecystectomy who presented with ruq pain and some nausea. Pt with + flatus and some diarrhea. Consulted for new finding on CT of a 12x14 cm complex pelvic mass. On Ct it appears to be related to the left ovary. Ct does not show any lymphadenopathy in the pelvis small amount of fluid around the mass and in the gallbladder area. Pt with some nausea and pain still but not severe. No significant public safety police history . Pt sees Dr diaz and was last seen approximately 1.5 years ago for an annual public safety police checkup. No recent imaging of pelvis prior to surgery to compare current findings to. Last CT was 2011 which was normal. Her physician has ordered a CA 125. On my exam she has + bowel sounds and her abdomen is soft and mildly tender. It is hard to delineate the mass on exam A/ 78 yo with a large pelvic mass that appears complex on CT P/ I have spent time talking with the patient and her and explained that we refer all potential malignancies out in order to prevent patients from undergoing 2 procedures . I feel like an ultrasound could help to delineate the potential for malignancy along with the ca 125. But most likely we would refer to [facility] for diagnostic and surgical treatment in public safety police oncologist setting. Patient and 's questions answered . I spoke with Dr Diaz and Dr Vaughn about her case. Art Wilson mD
[2019-01-25] MEDS ORDERED: Metoprolol Succinate XL TAB* 25 MG PO SCH (18:00)
[2019-01-25] MEDS ORDERED: Lisinopril TAB* 5 MG PO SCH (21:00)
[2019-01-25] MEDS ORDERED: Gabapentin CAP(*) 100 MG PO SCH (21:00)
[2019-01-25] MEDS ORDERED: Acetaminophen TAB* 325 MG PO PRN (23:33)
[2019-01-26] MEDS: Lactated Ringers 1000 ML Bag* 1,000 ML IV SCH (03:40)
[2019-01-26] MEDS: Heparin VIAL(*) 5000 UNITS/ML VIAL (FIVE THOUSAND) SUBCUT SCH (05:40)
[2019-01-26] MEDS: Levothyroxine TAB* 50 MCG TAB PO SCH (05:40)
[2019-01-26] MEDS: Pantoprazole TAB * 40 MG TAB PO SCH (08:50)
--- NOTE | 2019-01-26 10:14 | PN ---
Progress Note - Progress Note Date of Service: 01/26/19 SOAP: Subjective: [Pt feeling better with appetite] Objective: [VSS afeb > 24 hours] Assessment: [Const : pleasant female abdomen: benign] Plan: [Pt 78 with enlarged pelvic mass found incidentally after return to hospital for pain post op. Pt with pending CA 125 but given solid nature and new diagnosis( normal CT scan in 2012).Recommend consult and surgery with [facility]NA[employer] INSTALLER HELPER ONC given high likelihood of malignancy nature of enlarged ovarian mass. Will coordinate this referral. PT to be discharge to home today from [facility] service.]
[2019-01-26 11:14] VITALS: BP 128/49
--- NOTE | 2019-01-29 16:40 | DS ---
Discharge Summary Surgeon: Daniel Admit Date: 01/24/19 Discharge Date:01/26/19 D/C diagnosis:Pelvic Mass Reason For Admission:post operative pain s/p laparoscopic cholecystectomy Assessment of Condition at Discharge:stable Labs/findings:CT 01/24/19 shows a complex pelvic mass [id number] cm CA125 of 42(nl <46) U/S 01/25: Ovarian mass Procedures Performed: CT & U/S Hospital Course:patient presented with post operative abdominal pain on 01/24/19 s/p lap rhys on 01/18/19 done as same day outpatient surgery. CT and U/S of and 01/25 found a pelvic mass. Farm General Manager Mariya Wilson and Bob were consulted and it was decided to refer the patient to refinery operator assistant/onc in [place] to be coordinated by Dr Rojas. Patient will follow up with Dr Sanchez as previously scheduled Discharge instructions were given to the patient regarding Diet, Medications, Activity, and post operative Follow up. All Questions were answered. Discharged Home in Stable Condition on 01/26/19
== END 2019-01-26 12:40 | disposition home or self-care (01) ==
LOC: ED 16:42 → SSU 23:15
PROVIDERS: ADMIT Surgery; ATTEND Surgery
DX: K80.20 Calculus of gallbladder without cholecystitis without obstruction (principal); R10.11 Right upper quadrant pain; E03.9 Hypothyroidism, unspecified; I10 Essential (primary) hypertension; K21.9 Gastro-esophageal reflux disease without esophagitis; Z87.891 Personal history of nicotine dependence; R11.0 Nausea; K44.9 Diaphragmatic hernia without obstruction or gangrene; M41.9 Scoliosis, unspecified; M06.9 Rheumatoid arthritis, unspecified; M35.00 Sjogren syndrome, unspecified; M48.00 Spinal stenosis, site unspecified; G58.9 Mononeuropathy, unspecified; Z86.73 Personal history of transient ischemic attack (TIA), and cerebral infarction without residual deficits; Z79.899 Other long term (current) drug therapy
CPT/HCPCS: 36415; 74177; 76705; 76830; 76856; 80053; 81003; 81015; 82248; 85025; 86304; 87086; 93005; 96361; 96372; 96374; 96375; 96376; 99285; A9270-GY; G0378; J1644; J2270; J2405; J7512; Q9967

== ENCOUNTER 2024-02-25 15:09 | Inpatient (IN) ==
[2024-02-25 16:59] LABS: ABS Lymphocytes 0.7 10^3/uL (1.0-4.8); ABS Monocytes 1.2 10^3/uL (0.0-0.9); ABS Neutrophils 10.1 10^3/uL (1.5-7.6); Eosinophil % 0.2 %; Hematocrit 31.8 % (35-45); Hemoglobin 10.9 g/dL (11.5-14.3); Lymphocyte % 5.6 %; Mean Corpuscular Hemoglobin 30.6 pg (27-33); Mean Corpuscular Hgb Conc 34.4 g/dL (31-36); Mean Corpuscular Volume 88.9 fL (80-97); Mean Platelet Volume 7.6 fL (7.5-11.2); Platelet Count 183 10^3/uL (150-450); Red Blood Count 3.57 10^6/uL (3.63-4.92); Red Cell Distribution Width 14.1 % (12-17)
[2024-02-25 17:17] LABS: Activated Partial Thrombo Time 27.1 seconds (26.0-38.0); INR 1.21 (0.85-1.14)
[2024-02-25 17:23] LABS: High Sens Troponin Baseline 26 pg/mL (<15)
[2024-02-25 17:51] LABS: ALT 19 U/L (7-52); AST 43 U/L (13-39); Albumin 3.5 g/dL (3.5-5.7); Albumin/Globulin Ratio 2.2 (1-3); Alkaline Phosphatase 55 U/L (35-149); Anion Gap 9 mmol/L (2-16); Blood Urea Nitrogen 18 mg/dL (6-24); CO2 Carbon Dioxide 28 mmol/L (22-32); Chloride 89 mmol/L (101-111); Cholesterol 188 mg/dL; Creatinine, Serum 1.04 mg/dL (0.51-0.95); Direct Bilirubin 0.1 mg/dL (0.03-0.18); Globulin 1.6 g/dL (2-4); Glucose 90 mg/dL (70-100); HDL Cholesterol 27.3 mg/dL; Indirect Bilirubin 0.6 mg/dL (0.3-1.0); LDL Cholesterol 124 mg/dL; Sodium 126 mmol/L (135-145); Total Bilirubin 0.7 mg/dL (0.2-1.0); Total Protein 5.1 g/dL (6.4-8.9); Triglycerides 185 mg/dL; eGFR CKD-EPI 52.7 (>60)
[2024-02-25 18:54] LABS: Urine Appearance Extra Turbid; Urine Bilirubin Negative (Negative); Urine Blood 2+ (Negative); Urine Glucose Negative (Negative); Urine Ketones Negative (Negative); Urine Nitrite 2+ (Negative); Urine Protein 1+ (>=30 mg/dL) (Negative); Urine Urobilinogen Negative (Negative)
[2024-02-25 18:54] LABS: High Sensitivity Troponin 1 Hr 44 pg/mL (<15)
[2024-02-25 19:10] LABS: Urine Amorphous Crystals Present /HPF (Absent); Urine Bacteria 1+ /HPF (Absent); Urine Red Blood Cell 3+(>10/hpf) /HPF (0-Trace); Urine Squamous Epithelial Cell Present /HPF (Absent); Urine White Blood Cell 3+(>20/hpf) /HPF (0-Trace)
[2024-02-25 19:33] LABS: Urine Color Light-Yellow
[2024-02-25] MEDS: cefTRIAXone 1 gm/50 mL D5W 1 GM/50 ML BAG IV ONE (19:58)
[2024-02-25 20:38] LABS: Osmolality Serum 264 mOsm/kg (275-295)
[2024-02-25] MEDS ORDERED: Acetaminophen IV 1 GM/100ML 1,000 MG/100 ML BAG IV ONE (21:16)
[2024-02-25] MEDS: Acetaminophen IV 1 GM/100ML 1,000 MG/100 ML BAG IV ONE (21:28)
[2024-02-25 22:20] LABS: % Iron Saturation 9 % (15-55); .Transferrin 152 mg/dL (203-362); Iron < 20 ug/dL (50-212); Total Iron Binding Capacity 213 mcg/dL (250-450); Unsaturated Iron Binding 193 ug/dL
[2024-02-25 22:36] LABS: Ferritin 346.7 ng/mL (11-307)
[2024-02-25] MEDS: Lactated Ringers 1000 ml BAG 1,000 ML IV ONE (23:00)
[2024-02-25 23:40] LABS: Calcium 8.6 mg/dL (8.6-10.3); Creatinine, Serum 1.03 mg/dL (0.51-0.95); Potassium 3.5 mmol/L (3.5-5.0); eGFR CKD-EPI 53.3 (>60)
[2024-02-25 23:43] LABS: High Sensitivity Troponin 1 Hr 56 pg/mL (<15)
[2024-02-25] MEDS: Metoprolol Tartrate 5 mg VIAL 5 ml VIAL (1 mg/ml) IV ONE (23:47)
[2024-02-26] MEDS: Metoprolol Tartrate 5 mg VIAL 5 ml VIAL (1 mg/ml) ONE (00:02)
[2024-02-26] MEDS: Lactated Ringers 1000 ml BAG 1,000 ML IV SCH (03:35)
[2024-02-26 06:17] LABS: ABS Lymphocytes 0.8 10^3/uL (1.0-4.8); ABS Monocytes 0.9 10^3/uL (0.0-0.9); ABS Neutrophils 8.3 10^3/uL (1.5-7.6); ABS Nucleated RBC 0.01 10^3/ul; Eosinophil % 0.4 %; Hematocrit 30.1 % (35-45); Hemoglobin 10.7 g/dL (11.5-14.3); Lymphocyte % 8.2 %; Mean Corpuscular Hemoglobin 31.8 pg (27-33); Mean Corpuscular Hgb Conc 35.4 g/dL (31-36); Mean Corpuscular Volume 89.9 fL (80-97); Mean Platelet Volume 7.9 fL (7.5-11.2); Nucleated Red Blood Cells % 0.1 %/100WBC (0.0-0.8); Platelet Count 167 10^3/uL (150-450); Red Blood Count 3.35 10^6/uL (3.63-4.92); Red Cell Distribution Width 14.1 % (12-17)
[2024-02-26 07:09] LABS: Calcium 8.3 mg/dL (8.6-10.3); Creatinine, Serum 0.94 mg/dL (0.51-0.95); Magnesium 1.3 mg/dL (1.9-2.7); Potassium 3.9 mmol/L (3.5-5.0); eGFR CKD-EPI 59.5 (>60)
[2024-02-26] MEDS: Magnesium Sulf 4 GM/100 ML IV 4,000 MG/100 ML BAG IVPB ONE (08:47)
[2024-02-26] MEDS ORDERED: Sulfur Hexaflouride MICROSPHR 25 MG VIAL IV PRN (10:45)
[2024-02-26] MEDS: Calcium/Vitamin D TAB 250/125 TAB PO SCH (11:38)
[2024-02-26] MEDS: cefTRIAXone 2 gm/50 mL D5W 2 GM/50 ML BAG IV SCH (12:41)
[2024-02-26 13:10] LABS: High Sensitivity Troponin 1 Hr 26 pg/mL (<15)
[2024-02-26] MEDS: Heparin 5000 UNITS/ML 1 mL VIAL IV SCH (17:26)
[2024-02-26] MEDS: Heparin DRIP 25,000 UNITS BAG 25,000 UNITS/250 ML BAG IV SCH (17:28)
[2024-02-26] MEDS ORDERED: cefTRIAXone 1 gm/50 mL D5W 1 GM/50 ML BAG IV SCH (20:00)
[2024-02-27 06:52] LABS: ABS Lymphocytes 0.6 10^3/uL (1.0-4.8); ABS Monocytes 0.8 10^3/uL (0.0-0.9); ABS Neutrophils 8.3 10^3/uL (1.5-7.6); Eosinophil % 0.4 %; Hematocrit 26.4 % (35-45); Hemoglobin 9.3 g/dL (11.5-14.3); Lymphocyte % 5.8 %; Mean Corpuscular Hemoglobin 31.1 pg (27-33); Mean Corpuscular Volume 88.8 fL (80-97); Mean Platelet Volume 7.4 fL (7.5-11.2); Platelet Count 175 10^3/uL (150-450); Red Blood Count 2.98 10^6/uL (3.63-4.92); White Blood Count 9.7 10^3/uL (3.8-11.8)
[2024-02-27 07:33] LABS: Calcium 7.6 mg/dL (8.6-10.3); Creatinine, Serum 0.71 mg/dL (0.51-0.95); Magnesium 1.7 mg/dL (1.9-2.7); eGFR CKD-EPI 83.3 (>60)
[2024-02-27] MEDS: Magnesium Sulfate IV 1GM/100ML 1 GM/100 ML BAG IV ONE (10:22)
[2024-02-27 12:50] LABS: TSH Ultra Thyroid Stim Horm 2.28 mcIU/mL (0.34-5.60)
[2024-02-27 12:52] LABS: Free T3 1.59 pg/mL (2.5-3.9); Free T4 1.54 ng/dL (0.61-1.12)
[2024-02-27] MEDS: Potassium Chloride LIQUID 20 MEQ/15 ML LIQUID PO ONE ×2 (13:52→21:02)
[2024-02-27] MEDS: Metoprolol Tartrate 5 mg VIAL 5 ml VIAL (1 mg/ml) IV ONE (14:23)
[2024-02-27] MEDS: KCL 20 MEQ/100 ML IVPREMIX 20 MEQ/100 ML BAG IV ONE (14:29)
[2024-02-27 16:29] LABS: Hematocrit 31.9 % (35-45); Hemoglobin 11.1 g/dL (11.5-14.3)
[2024-02-27] MEDS ORDERED: Midazolam 10 mg/10 ml VIAL 1 mg/ml 10 ml VIAL (10 mg) ONE (17:25)
[2024-02-27] MEDS ORDERED: fentaNYL 100 mcg/2 ml 50 MCG/ML VIAL ONE (17:25)
[2024-02-27] MEDS: Lactated Ringers 1000 ml BAG 1,000 ML IV SCH (19:52)
[2024-02-27] MEDS: PEG 3000 GI LAVAGE 1 GALLON PO ONE (20:57)
[2024-02-28] MEDS: PEG 3000 GI LAVAGE 1 GALLON PO ONE (03:57)
[2024-02-28 06:13] LABS: ABS Eosinophils 0.1 10^3/uL (0.0-0.5); ABS Lymphocytes 0.5 10^3/uL (1.0-4.8); ABS Monocytes 0.7 10^3/uL (0.0-0.9); Eosinophil % 0.8 %; Hematocrit 26.8 % (35-45); Hemoglobin 9.5 g/dL (11.5-14.3); Lymphocyte % 6.2 %; Mean Corpuscular Hemoglobin 31.2 pg (27-33); Mean Corpuscular Hgb Conc 35.3 g/dL (31-36); Mean Corpuscular Volume 88.4 fL (80-97); Mean Platelet Volume 7.5 fL (7.5-11.2); Platelet Count 213 10^3/uL (150-450); Red Blood Count 3.04 10^6/uL (3.63-4.92); Red Cell Distribution Width 14.2 % (12-17); White Blood Count 8.3 10^3/uL (3.8-11.8)
[2024-02-28 06:51] LABS: Calcium 7.9 mg/dL (8.6-10.3); Creatinine, Serum 0.66 mg/dL (0.51-0.95); Magnesium 1.6 mg/dL (1.9-2.7); Potassium 3.8 mmol/L (3.5-5.0); eGFR CKD-EPI 85.9 (>60)
[2024-02-28] MEDS: Magnesium Sulf 4 GM/100 ML IV 4,000 MG/100 ML BAG IVPB ONE (11:32)
[2024-02-28 15:33] LABS: Urine Osmo 237 mOsm/kg (150-1150)
[2024-02-29] MEDS: PEG 3000 GI LAVAGE 1 GALLON PO ONE (05:05)
[2024-02-29 05:57] LABS: ABS Eosinophils 0.1 10^3/uL (0.0-0.5); ABS Lymphocytes 0.6 10^3/uL (1.0-4.8); ABS Monocytes 0.7 10^3/uL (0.0-0.9); ABS Neutrophils 6.5 10^3/uL (1.5-7.6); Hematocrit 33.1 % (35-45); Hemoglobin 11.6 g/dL (11.5-14.3); Mean Corpuscular Hemoglobin 31.3 pg (27-33); Mean Corpuscular Hgb Conc 34.9 g/dL (31-36); Mean Corpuscular Volume 89.5 fL (80-97); Mean Platelet Volume 7.5 fL (7.5-11.2); Nucleated Red Blood Cells % 0.1 %/100WBC (0.0-0.8); Platelet Count 263 10^3/uL (150-450); Red Cell Distribution Width 14.2 % (12-17); White Blood Count 7.9 10^3/uL (3.8-11.8)
[2024-02-29 06:20] LABS: Calcium 8.4 mg/dL (8.6-10.3); Creatinine, Serum 0.7 mg/dL (0.51-0.95); Magnesium 2.1 mg/dL (1.9-2.7); Potassium 3.3 mmol/L (3.5-5.0); eGFR CKD-EPI 84.7 (>60)
[2024-02-29] MEDS ORDERED: Midazolam 10 mg/10 ml VIAL 1 mg/ml 10 ml VIAL (10 mg) ONE (09:30)
[2024-02-29] MEDS ORDERED: fentaNYL 100 mcg/2 ml 50 MCG/ML VIAL ONE (09:30)
[2024-02-29] MEDS: Potassium Chloride LIQUID 20 MEQ/15 ML LIQUID PO ONE (11:32)
[2024-02-29 13:56] VITALS: BP 128/61
== END 2024-02-29 17:15 | disposition home or self-care (01) | DRG 720 ==
LOC: EDHOLD 15:09 → ED 15:09 → SUATTDRO 19:08 → MEDTELE 20:24
PROVIDERS: ADMIT Internal Medicine; ATTEND Student in an Organized Health Care Education/Training Program